=== PATIENT | female | born 1960 | race Caucasian/White ===

== ENCOUNTER 2016-06-09 10:52 | Emergency (ER) | payer OTHER ==
[~2016-06-09] VITALS: Wt 78.0 kg
[~2016-06-09 10:52] MED LIST: DICL75TA2 PO; DULO60CA59 PO; FENO160T13 PO; FLUT1BLS INHALATION; GLIM1TAB2 PO; GLIM2TAB PO; HYD25 PO; HYDR-1666; HYDR50TA3 PO; IBUP-1542; OMEP40CA6 PO; PSEU60TA21 PO; SMV40T PO; TRAZ100T15 PO; [UNRECOGNIZED DRUG - CODE]; [UNRECOGNIZED DRUG - CODE] MC; [UNRECOGNIZED DRUG - REMARK]; ventolin
--- NOTE | 2016-06-09 11:55 | ERD ---
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 no neck/back pain HPI 55-year-old female history of diabetes hypertension dyslipidemia comes in with a right-sided headache from a ground-level fall 2 hours ago. She has slipped and fallen in the rain, she, is of a right sided headache that is throbbing, severe, nonradiating. She did not lose any consciousness, she denies nausea, vomiting, blurred vision or neuro deficits. ROS All systems reviewed and are negative except as per history of present illness. Medications Home Meds Active Scripts Hydrocodone/Acetaminophen ([place] 5-325 Tablet) 1 Each Tablet, 1 TAB PO Q6H Y for PAIN, #10 TAB Prov:JOSE ESPARZA PA-C 06/09/16 Reported Medications [ventolin ] No Conflict Check 11/27/15 Fluticasone/Vilanterol (Breo Ellipta 200-25 Mcg INH) 1 Each Blst.w.dev, 1 PUFF INHALATION DAILY, #1 INHALER 11/27/15 Duloxetine Hcl* (Duloxetine Hcl*) 60 Mg Capsule.dr, 60 MG PO DAILY, #30 CAP 11/27/15 Diclofenac Sodium* (Diclofenac Sodium*) 75 Mg Tablet.dr, 75 MG PO BID, #60 TAB 11/27/15 Glimepiride* (Glimepiride*) 1 Mg Tablet, 1 MG PO WITH BREAKFAST, TAB 11/27/15 Trazodone Hcl* (Trazodone Hcl*) 100 Mg Tablet, 100 MG PO QHS Y for SLEEP, #30 TAB 11/27/15 Sucralfate (Sucralfate) 1,000 Gm Powder, 1000 GM MC BID 11/27/15 Hydrochlorothiazide* (Hydrochlorothiazide*) 50 Mg Tab, 50 MG PO DAILY, #30 TAB 11/27/15 Pseudoephedrine Hcl* (Sudogest*) 60 Mg Tablet, 60 MG PO Q6 Y for CONGESTION, TAB 11/27/15 Omeprazole* (Omeprazole*) 40 Mg Capsule.dr, 40 MG PO DAILY, #30 CAP 11/27/15 Fenofibrate, Micronized* (Fenofibrate*) 160 Mg Tablet, 160 MG PO DAILY, TAB 7/26/16 Simvastatin (Simvastatin) 40 Mg Tablet, 40 MG PO HS, TAB 03/03/14 Glimepiride* (Glimepiride*) 2 Mg Tablet, 2 MG PO WITH BREAKFAST, TAB 03/03/14 Hydrochlorothiazide* (Hydrochlorothiazide*) 25 Mg Tab, 25 MG PO DAILY, TAB 03/03/14 [Unknown Name] No Conflict Check 11/22/09 Gabapentin (Gabarone) 400 Mg Tablet 11/22/09 Ibuprofen* (Ibuprofen*) 600 Mg Tablet 11/22/09 Hydrocodone Bit/Acetaminophen (Vicodin 5/500 Tablet) 1 Tab Tablet 11/22/09 Allergies Allergies: Coded Allergies: sulfamethoxazole (Verified Allergy, Severe, 11/27/15) difficulty of breathing trimethoprim (Verified Allergy, Severe, 11/27/15) difficulty of breathing PMhx/Soc History of Surgery: Yes (FACE AND BACK SG (2012,2009).) Anesthesia Reaction: No Hx Neurological Disorder: No Hx Respiratory Disorders: Yes (asthma) Hx Cardiac Disorders: Yes (htn) Hx Psychiatric Problems: No Hx Miscellaneous Medical Probl: Yes (ASTHMA, GERD, HTN, DM, FACE AND BACK SG ( 2012,2009).) Hx Alcohol Use: Yes (occasional) Hx Substance Use: No Hx Tobacco Use: No Physical Exam Vitals Vital Signs Date Time Temp Pulse Resp B/P Pulse Ox O2 Delivery O2 Flow Rate FiO2 06/09/16 10:59 98.7 85 21 150/81 98 Physical Exam General: Well-developed, well-nourished. The patient appears in no acute distress. HEENT: Head is normocephalic, right temporal scalp hematoma. No overlying laceration no scleral icterus. Pupils are equal, round, and reactive. Oropharynx clear. Neck: Supple. Nontender. No midline tenderness, step-offs or crepitus. Lungs: Clear to auscultation. Normal air movement. Heart: Regular rate and rhythm. S1 and S2 are normal. No murmurs, gallops, or rubs. Abdomen: Soft, nontender, nondistended. Bowel sounds are normoactive. Extremities: No clubbing or cyanosis. Normal pulses. Moving extremities x 4. No weakness. Neurologic: Alert and oriented 3. No focal deficits. Cranial nerves II 12 grossly intact. Speech and gait normal. Strength upper and lower exam is 5 out of 5 bilaterally. Skin: Normal turgor. No rash or lesions. Results 24 hrs Current Medications Medications (Trade) Dose Ordered Sig/Ann Route PRN Reason Start Time Stop Time Status Last Admin Dose Admin Acetaminophen (Tylenol Tab) 650 mg ONCE ONCE PO 06/09/16 12:00 06/09/16 12:01 DC 06/09/16 12:05 PROCEDURE: CT Brain without contrast. CLINICAL INDICATION: Right sided head trauma TECHNIQUE: A CT of the brain was performed utilized axial imaging from the skull base through the vertex without IV contrast. Multiplanar reformatted images were made. Images were reviewed on a PACS workstation. The CTDIvol is 45 mGy and the DLP is 630 mGycm. COMPARISON: None FINDINGS: There is no intracranial hemorrhage, mass effect, or midline shift. No extra- axial fluid collection is seen. The ventricles and sulci are normal in size and configuration. The density of the brain is normal, and the trujillo white matter differentiation appears well-preserved. The visualized paranasal sinuses and osseous structures are grossly unremarkable. There is right frontal scalp swelling. IMPRESSION: Right frontal scalp swelling. No intracranial hemorrhage or skull fracture. .Evin Robles MD, MD Date Time Electronically viewed and signed by .Evin Robles MD, MD on 06/09/2016 12: 41 Procedures/MDM ED course: She was given Tylenol for pain. CT of the head was ordered based on her hematoma and head trauma. MDM: 55-year-old female slipped and fell, complains of right temporal headache, no evidence of a skull fracture or intracranial hemorrhage on the CT scan. Her neurologic examination is normal, she does have a scalp hematoma that is appreciated on examination. This patient may follow-up with her primary care doctor. Departure Diagnosis: Primary Impression: Head injury, acute, without loss of consciousness Condition: JOSE Xie PA-C Jun 09, 2016 11:55
[2016-06-09] MEDS ORDERED: ACETAMINOPHEN 325 MG TAB PO ONE (12:00)
--- NOTE | 2016-06-09 12:41 | RADRPT ---
PROCEDURE: CT Brain without contrast. CLINICAL INDICATION: Right sided head trauma TECHNIQUE: A CT of the brain was performed utilized axial imaging from the skull base through the vertex without IV contrast. Multiplanar reformatted images were made. Images were reviewed on a thePlatform workstation. The CTDIvol is 45 mGy and the DLP is 630 mGycm. COMPARISON: None FINDINGS: There is no intracranial hemorrhage, mass effect, or midline shift. No extra-axial fluid collection is seen. The ventricles and sulci are normal in size and configuration. The density of the brain is normal, and the trujillo white matter differentiation appears well-preserved. The visualized paranasal sinuses and osseous structures are grossly unremarkable. There is right frontal scalp swelling. IMPRESSION: Right frontal scalp swelling. No intracranial hemorrhage or skull fracture. .Evin Robles MD, MD Date Time Electronically viewed and signed by .Evin Robles MD, MD on 06/09/2016 12:41 .A/
[2016-06-09] MEDS ORDERED: HYDR-906 PO (12:48)
[2016-06-09 13:22] VITALS: BP 145/80; PULSE 66; RESP 18; TEMP 98.7
== END 2016-06-09 13:23 | disposition home or self-care (01) ==
LOC: FTE 10:52
DX: S09.90XA Unspecified injury of head, initial encounter (principal); J45.909 Unspecified asthma, uncomplicated; I10 Essential (primary) hypertension; E11.9 Type 2 diabetes mellitus without complications; R51 Headache; W01.0XXA Fall on same level from slipping, tripping and stumbling without subsequent striking against object, initial encounter; Y92.9 Unspecified place or not applicable; Z79.84 Long term (current) use of oral hypoglycemic drugs
CPT/HCPCS: 70450; Z7502; Z7610

== ENCOUNTER 2016-08-18 11:38 | Day surgery (SDC) | payer OTHER ==
[~2016-08-18] VITALS: Ht 157.5 cm; Wt 80.4 kg
[~2016-08-18 11:38] MED LIST changes: +HYDR-906 PO
[2016-08-18 13:12] VITALS: Ht 157.5 cm; Wt 80.4 kg
[2016-08-18 13:37] VITALS: BP 138/83; PULSE 73; RESP 16
[2016-08-18] MEDS ORDERED: CEFAZOLIN 1 GM/50 ML (PMX) 50 ML IVPB ONE (14:03)
[2016-08-18 15:12] VITALS: BP 124/78; PULSE 68; RESP 12
[2016-08-18] MEDS ORDERED: FENTAnyl 50 MCG/ML VIAL ONE (15:23)
[2016-08-18] MEDS ORDERED: MIDAZOLAM 1 MG/ML 2 ML INJ ONE ×2 (15:23)
--- NOTE | 2016-08-19 03:55 | GILP ---
DATE OF PROCEDURE: 08/18/2016 PREOPERATIVE DIAGNOSIS: Iron deficiency anemia. PROCEDURE DONE: Colonoscopy up to cecum. POSTOPERATIVE DIAGNOSIS: Diverticulosis of the left colon. DESCRIPTION OF PROCEDURE: After obtaining informed consent, she was sedated, monitored, and 3 mg IV Versed, 75 mcg of fentanyl given. Rectal exam done which was normal. Advanced a pediatric Olympus video colonoscope all the way to cecum. Cecum and ascending colon identified with ileocecal valve and appendiceal opening. Photography done. I slowly withdrew the scope. Because of the pain, anot her 1 mg of IV Versed and 25 mcg of fentanyl given. Decompressed the patient and then slowly withdr ew the scope examining the cecum, ascending colon, transverse colon, descending colon, sigmoid colon , and rectum. Except for diverticulosis in the left colon but no diverticulitis, no narrowing, rect um including retroflexion is normal. Upon removal of scope, the patient had no complication. PLAN: Will be to follow up p.r.n. and repeat colonoscopy in 5 to 10 years. As far as if her occult bleeding continues, consider capsule enteroscopy and followup as outpatient. Dictated By: BRIANA AVELAR Conf#: [id number] DID#: [id number] CC: Sameer Barraza MD;*End*
== END 2016-08-18 16:30 | disposition home or self-care (01) ==
LOC: GIL 11:38
PROVIDERS: ATTEND Internal Medicine
DX: D50.9 Iron deficiency anemia, unspecified (principal); K57.30 Diverticulosis of large intestine without perforation or abscess without bleeding; E11.9 Type 2 diabetes mellitus without complications; I10 Essential (primary) hypertension; E78.5 Hyperlipidemia, unspecified; K31.9 Disease of stomach and duodenum, unspecified; K44.9 Diaphragmatic hernia without obstruction or gangrene; K21.9 Gastro-esophageal reflux disease without esophagitis; R11.2 Nausea with vomiting, unspecified; E87.5 Hyperkalemia; M13.0 Polyarthritis, unspecified; K62.5 Hemorrhage of anus and rectum
CPT/HCPCS: 45378; 82962; J0690; J2250; J3010

== ENCOUNTER 2017-03-12 13:45 | Inpatient (IN) | payer OTHER ==
[~2017-03-12] VITALS: Ht 162.6 cm; Wt 78.8 kg
[~2017-03-12 13:45] MED LIST changes: -DICL75TA2 PO; -DULO60CA59 PO; -GLIM2TAB PO; -HYD25 PO; -HYDR-1666; -HYDR-906 PO; -IBUP-1542; -PSEU60TA21 PO; -SMV40T PO; -[UNRECOGNIZED DRUG - CODE]; -[UNRECOGNIZED DRUG - CODE] MC; -[UNRECOGNIZED DRUG - REMARK]
[2017-03-12] MEDS ORDERED: SOD CHLORIDE 0.9% 1,000 ML IV STA (14:19)
[2017-03-12] MEDS ORDERED: morphine 4 MG/ML VIAL IV STA (14:26)
[2017-03-12] MEDS ORDERED: ONDANSETRON 4 MG INJ IV STA (14:26)
--- NOTE | 2017-03-12 15:01 | RADRPT ---
PROCEDURE: CT Abdomen and Pelvis without contrast. CLINICAL INDICATION: Abdominal pain TECHNIQUE: CT scan of the abdomen and pelvis was performed on a multidetector high-resolution CT s canner without intravenous contrast. Coronal and sagittal reformatted images were obtained from the axial source images. Images were reviewed on a high-resolution PACS workstation. The total exam CTD I equals 17mGy and the total exam DLP equals 1005mGy-cm. One or more of the following dose reduction techniques were used: Automated exposure control, Adjustment of the mA and/or kV according to patie nt size, and/or use of iterative reconstruction technique. COMPARISON: None. FINDINGS: Evaluation of the solid organs is limited given the lack of intravenous contrast administration. The lung bases are clear. Hypoattenuation of the liver. No pancreatic ductal dilatation. Spleen and adrenals are unremarkable. No focal pericholecystic inflammatory changes. No hydronephrosis. No renal or ureteral stone. No bowel obstruction. Normal-caliber appendix. Sigmoid colonic diverticulosis with trace pericolon ic stranding. No significant retroperitoneal lymphadenopathy, ascites or evidence of pneumoperitoneum. L5-S1 anterior interbody and interspinous fusion. IMPRESSION: Sigmoid colonic diverticulosis with trace pericolonic stranding can be seen with mild sigmoid coloni c diverticulitis. Hepatic steatosis. RPTAT: AA .Gunner Garcia MD, Date Time Electronically viewed and signed by .Gunner Garcia MD, on 03/12/2017 15:00 .T/
[2017-03-12 15:04] LABS: BASOPHILS % 0.4 % (0.0-2.0); HEMATOCRIT 39.5 % (37.0-47.0); HEMOGLOBIN 13.2 g/dl (12.0-16.0); LYMPHOCYTES # 1.7 10^3/ul (0.8-2.9); LYMPHOCYTES % 25.3 % (15.0-51.0); MEAN CORPUSCULAR HEMOGLOBIN 28.3 pg (29.0-33.0); MEAN CORPUSCULAR HGB CONC 33.4 g/dl (32.0-37.0); MEAN CORPUSCULAR VOLUME 84.6 fl (82.0-101.0); MEAN PLATELET VOLUME 8.7 fl (7.4-10.4); MONOCYTE # 0.4 10^3/ul (0.3-0.9); MONOCYTES % 5.6 % (0.0-11.0); NEUTROPHIL # 4.6 10^3/ul (1.6-7.5); NEUTROPHILS % 68.4 % (39.0-77.0); PLATELET COUNT 341 10^3/UL (140-415); RED BLOOD COUNT 4.67 10^6/ul (4.20-5.40); RED CELL DISTRIBUTION WIDTH 13.1 % (11.5-14.5); WHITE BLOOD COUNT 6.8 10^3/ul (4.8-10.8)
[2017-03-12 15:21] LABS: ALBUMIN 4.3 g/dl (3.3-4.9); ALBUMIN/GLOBULIN RATIO 1.07; BILIRUBIN,INDIRECT 0.2 mg/dl (0-1.1); BILIRUBIN,TOTAL 0.2 mg/dl (0.2-1.3); CALCIUM 9.5 mg/dl (8.4-10.2); CREATININE 0.73 mg/dl (0.44-1.00); INR 0.93; POTASSIUM 3.4 mmol/L (3.5-5.1); PROTIME 12.5 Sec (12.2-14.2); TOTAL PROTEIN 8.3 g/dl (6.1-8.1)
[2017-03-12] MEDS ORDERED: metroNIDAZOLE 500 MG/NS (PMX) 100 ML IVPB ONE (15:30)
[2017-03-12] MEDS ORDERED: LEVOFLOXACIN 750MG/D5W (PMX) 150 ML IVPB ONE (15:30)
[2017-03-12] MEDS ORDERED: ALBUTEROL/IPRATROPIUM (NEB) 3 ML AMP HHN PRN (16:30)
[2017-03-12] MEDS ORDERED: ONDANSETRON 4 MG INJ IV PRN (16:30)
[2017-03-12] MEDS ORDERED: NACL 0.9% 3 ML SYG IV SCH (16:30)
--- NOTE | 2017-03-12 16:55 | ERD ---
ER Documentation Chief Complaint Chief Complaint rectal bleed x5 days, hx diverticulitis HPI 56-year-old woman complains of 5 days of rectal bleeding, blood intermixed with stool. She denies melena but does have a recent history of acute diverticulitis which was managed as an inpatient for 4 days last month and treated with IV antibiotics. She admits to taking about 1 week of oral antibiotics 1 week post discharge. She states initially her symptoms improved although returned about 4 days ago. She describes lower abdominal cramping, no fevers or chills, no vomiting, no chest pain or shortness of breath. ROS All systems reviewed and are negative except as per history of present illness. Medications Home Meds Reported Medications [ventolin ] No Conflict Check 11/27/15 Fluticasone/Vilanterol (Breo Ellipta 200-25 Mcg INH) 1 Each Blst.w.dev, 1 PUFF INHALATION DAILY, #1 INHALER 11/27/15 Glimepiride* (Glimepiride*) 1 Mg Tablet, 1 MG PO WITH BREAKFAST, TAB 11/27/15 Trazodone Hcl* (Trazodone Hcl*) 100 Mg Tablet, 100 MG PO QHS Y for SLEEP, #30 TAB 11/27/15 Hydrochlorothiazide* (Hydrochlorothiazide*) 50 Mg Tab, 50 MG PO DAILY, #30 TAB 11/27/15 Omeprazole* (Omeprazole*) 40 Mg Capsule.dr, 40 MG PO DAILY, #30 CAP 11/27/15 Fenofibrate, Micronized* (Fenofibrate*) 160 Mg Tablet, 160 MG PO DAILY, TAB 11/27/15 Allergies Allergies: Coded Allergies: sulfamethoxazole (Verified Allergy, Severe, 11/27/15) difficulty of breathing trimethoprim (Verified Allergy, Severe, 11/27/15) difficulty of breathing PMhx/Soc Recent diverticulitis, diabetes mellitus, gastritis History of Surgery: Yes (FUSION LOW BACK, R KNEE OPA, R JAW CYST) Anesthesia Reaction: No Hx Neurological Disorder: No Hx Respiratory Disorders: Yes (SEASONAL ALLERGIES) Hx Cardiac Disorders: Yes (HIGH CHOL HTN) Hx Psychiatric Problems: No Hx Miscellaneous Medical Probl: No Hx Alcohol Use: No Hx Substance Use: No Hx Tobacco Use: Yes (QUIT 40 YRS AGO) Smoking Status: Former smoker FmHx Family History: diabetes Physical Exam Vitals Vital Signs Date Time Temp Pulse Resp B/P Pulse Ox O2 Delivery O2 Flow Rate FiO2 03/12/17 13:49 97.6 88 20 123/85 98 Physical Exam GENERAL: Well-developed, well-nourished, well-hydrated, in no apparent distress , looks nontoxic in appearance HEENT: Moist mucous membranes, pink conjunctiva, no cervical spine tenderness or step-off deformities, no goiter, no jaundice or icterus, extraocular movements intact without pain. No submandibular induration, and no pharyngeal erythema NEURO: Alert and oriented 3, cranial nerves II through XII intact bilaterally, pupils equal round reactive to light, no focal deficits or facial asymmetry, sensation intact distally Strength 5/5 in upper and lower extremities bilaterally CARDIAC: Regular rate and rhythm, no murmurs rubs or gallops LUNGS: Clear bilaterally no wheezing crackles or stridor ABDOMEN: Soft nontender, no guarding, no rigidity, no rebound, no psoas sign no obturator sign. Normoactive bowel sounds SKIN: Warm and dry to touch, no abrasions, contusions, or hematomas, no lacerations, no ecchymosis, no target lesions, and without ulcers EXTREMITIES: No clubbing cyanosis or edema, calves are bilaterally symmetrical, no Homans sign, no popliteal cord sign. Distal pulses equal and bilateral PSYCH: Normal affect without agitation or irritability Result Diagram: 03/12/17 1450 03/12/17 1450 Results 24 hrs Laboratory Tests Test 03/12/17 14:50 White Blood Count 6.810^3/ul Red Blood Count 4.6710^6/ul Hemoglobin 13.2g/dl Hematocrit 39.5% Mean Corpuscular Volume 84.6fl Mean Corpuscular Hemoglobin 28.3pg Mean Corpuscular Hemoglobin Concent 33.4g/dl Red Cell Distribution Width 13.1% Platelet Count 66371^3/UL Mean Platelet Volume 8.7fl Neutrophils % 68.4% Lymphocytes % 25.3% Monocytes % 5.6% Eosinophils % 0.0% Basophils % 0.4% Nucleated Red Blood Cells % 0.0/100WBC Neutrophils # 4.610^3/ul Lymphocytes # 1.710^3/ul Monocytes # 0.410^3/ul Eosinophils # 0.010^3/ul Basophils # 0.010^3/ul Nucleated Red Blood Cells # 0.010^3/ul Prothrombin Time 12.5Sec Prothrombin Time Ratio 1.0 INR International Normalized Ratio 0.93 Sodium Level 144mmol/L Potassium Level 3.4mmol/L Chloride Level 103mmol/L Carbon Dioxide Level 30mmol/L Anion Gap 14 Blood Urea Nitrogen 13mg/dl Creatinine 0.73mg/dl Glucose Level 94mg/dl Calcium Level 9.5mg/dl Total Bilirubin 0.2mg/dl Direct Bilirubin 0.00mg/dl Indirect Bilirubin 0.2mg/dl Aspartate Amino Transf (AST/SGOT) 26IU/L Alanine Aminotransferase (ALT/SGPT) 36IU/L Alkaline Phosphatase 120IU/L Total Protein 8.3g/dl Albumin 4.3g/dl Globulin 4.00g/dl Albumin/Globulin Ratio 1.07 Lipase 49U/L Current Medications Medications (Trade) Dose Ordered Sig/Ann Route PRN Reason Start Time Stop Time Status Last Admin Dose Admin Sodium Chloride (NS) 1,000 ml @ 1,000 mls/hr Q1H STAT IV 03/12/17 14:19 03/12/17 15:18 DC 03/12/17 15:49 Morphine Sulfate (morphine) 4 mg ONCE STAT IV 03/12/17 14:26 03/12/17 14:27 DC 03/12/17 15:49 Ondansetron HCl 4 mg 4 mg ONCE STAT IV 03/12/17 14:26 03/12/17 14:27 DC 03/12/17 15:49 Metronidazole 100 ml @ 100 mls/hr ONCE ONCE IVPB 03/12/17 15:30 03/12/17 16:29 DC 03/12/17 15:49 Levofloxacin/ Dextrose 150 ml @ 100 mls/hr ONCE ONCE IVPB 03/12/17 15:30 03/12/17 16:59 03/12/17 16:27 Potassium Chloride/Dextrose/ Sod Cl (D5-1/2ns + KCl 20 Meq) 1,000 ml @ 100 mls/hr Q10H IV 03/12/17 16:19 UNV IV Flush (NS 3 ml) 3 ml PER PROTOCOL IV 03/12/17 16:30 UNV Ondansetron HCl (Zofran Inj) 4 mg Q6H PRN IV NAUSEA AND/OR VOMITING 03/12/17 16:30 UNV Morphine Sulfate 2 mg 2 mg Q4H PRN IV SEVERE PAIN LEVEL 7-10 03/12/17 16:30 UNV Piperacillin Sod/ Tazobactam Sod (Zosyn 3.375gm/ 50 ml (Pmx)) 50 ml @ 100 mls/hr Q6 IVPB 03/12/17 18:00 UNV Miscellaneous Information 1 puff DAILY INHALATION 03/13/17 09:00 UNV Albuterol/ Ipratropium (Duoneb) 3 ml Q4H RESP THERAPY PRN HHN SHORTNESS OF BREATH 03/12/17 16:30 UNV Miscellaneous Information (* Miscellaneous Pharmacy Order) Discontinue current oral sulfonylur... ONCE ONCE XX 03/12/17 16:30 03/12/17 16:31 UNV Diagnostic Test (Pha) (Accu-Chek) 1 ea 02 XX 03/13/17 02:00 UNV Miscellaneous Information (* Miscellaneous Pharmacy Order) HYPOGLYCEMIA PROTOCOL w... ONCE ONCE XX 03/12/17 16:30 03/12/17 16:31 UNV Insulin Aspart (Novolog Insulin Pen) NOVOLOG *MILD* ALGORI... Q4 SC 03/12/17 17:00 UNV Miscellaneous Information (* Miscellaneous Pharmacy Order) Discontinue all previ... 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 Patient was afebrile. Stool cultures and C. difficile toxin assay was ordered I administered 1 L normal saline intravenously, morphine 4 mg IV, Zofran 4 mg IV , Levaquin 750 mg IV 1, metronidazole 500 mg IV 1. CBC and electrolytes are normal, liver function tests are normal, coagulation profile was unremarkable. CT scan of the abdomen and pelvis was ordered: Sigmoid colonic diverticulosis with trace pericolonic stranding can be seen with mild sigmoid colonic diverticulitis. Hepatic steatosis. Patient will be admitted to [facility] for continued IV antibiotics and GI consultation. Departure Diagnosis: Primary Impression: Rectal hemorrhage Additional Impression: Sigmoid diverticulitis Condition: BUSHRA Nuñez MD Mar 12, 2017 16:55
[2017-03-12] MEDS ORDERED: GLUCOSE GEL 15 GRAM TUBE BUCCAL PRN (17:00)
[2017-03-12] MEDS ORDERED: GLUCAGON 1 MG INJ IM PRN (17:00)
[2017-03-12] MEDS ORDERED: DEXTROSE 50% 50 ML SYRINGE IV PRN ×2 (17:00)
[2017-03-12] MEDS ORDERED: GLUCOSE GEL 15 GRAM TUBE PO PRN ×2 (17:00)
--- NOTE | 2017-03-12 17:11 | HP ---
Date/Time of Note Date/Time of Note DATE: 03/12/17 TIME: 17:04 Assessment/Plan VTE Prophylaxis VTE Prophylaxis Intervention: SCD's Assessment/Plan Chief Complaint/Hosp Course 1. Lower GI bleed H&H stable Positive secondary to hemorrhoids GI consultation 2. Possible diverticulitis Patient is reported history of diverticulitis N.p.o. Zosyn IV 3. Asthma Continue home meds DuoNeb as needed 4. Diabetes Sliding scale 5. Hypertension Hold hydrochlorthiazide 6. Dyslipidemia Hold fenofibrate Prophylaxis: SCDs Problems: HPI/ROS Admit Date/Time Admit Date/Time March 12, 2017 Hx of Present Illness Patient is 56-year-old female with a history of asthma, [id number] diabetes, hypertension as well as left colitis. Patient presents with 4 days of abdominal and lower back pain associated with bright red blood per rectum. Patient states that the bleeding begins after her bowel movements. Patient has no prior history of GI bleed but she once again reports a history of diverticulitis in the past. CT abdomen in the ED shows possible diverticulitis , patient has no other acute complaints this time. ROS Constitutional: improved, no complaints Eyes: no complaints ENT: no complaints Respiratory: no complaints Cardiovascular: no complaints Gastrointestinal: blood, pain Genitourinary: no complaints Musculoskeletal: no complaints Skin: no complaints Neurologic: no complaints Endocrine: no complaints Lymphatic: no complaints Psychological: nl mood/affect, no complaints Immunologic: no complaints PMH/Family/Social Past Medical History None insulin dependent diabetes, hypertension, asthma, dyslipidemia, diverticulitis Past Surgical History L5-S1 laminectomy as well as right knee meniscal tear repair Family History Significant Family History: no pertinent family hx Social History Alcohol Use: none Smoking Status: Former smoker Drug Use: none Exam/Review of Systems Vital Signs Vitals Vital Signs Date Time Temp Pulse Resp B/P Pulse Ox O2 Delivery O2 Flow Rate FiO2 03/12/17 13:49 97.6 88 20 123/85 98 Exam Constitutional: alert, oriented Head: normocephalic Respiratory: clear to auscultation Cardiovascular: regular rate and rhythm Gastrointestinal: soft, No distended Musculoskeletal: nl extremities to inspection Labs Result Diagram: 03/12/17 1450 03/12/17 1450 Medications Medications Current Medications Potassium Chloride/Dextrose/ Sod Cl (D5-1/2ns + KCl 20 Meq) 1,000 ml @ 100 mls/ hr Q10H IV ; Start 03/12/17 at 18:00 Ondansetron HCl (Zofran Inj) 4 mg Q6H PRN IV NAUSEA AND/OR VOMITING; Start 03/12/17 at 16:30 Morphine Sulfate 2 mg 2 mg Q4H PRN IV SEVERE PAIN LEVEL 7-10; Start 03/12/17 at 16:30 Piperacillin Sod/ Tazobactam Sod (Zosyn 3.375gm/ 50 ml (Pmx)) 50 ml @ 100 mls/ hr Q6 IVPB ; Start 03/13/17 at 00:00 Salmeterol Xinafoate/ Fluticasone (Advair 100/50 Diskus) 1 inh BID INH ; Start 03/12/17 at 21:00 Diagnostic Test (Pha) (Accu-Chek) 1 ea 02 XX ; Start 03/13/17 at 02:00 Insulin Aspart (Novolog Insulin Pen) NOVOLOG *MILD* ALGORI... Q4 SC ; Start 03/12/17 at 21:00 Miscellaneous Information 1 ea NOTE XX ; Start 03/12/17 at 17:00 Glucose (Glutose) 15 gm Q15M PRN PO DECREASED GLUCOSE; Start 03/12/17 at 17:00 Glucose (Glutose) 22.5 gm Q15M PRN PO DECREASED GLUCOSE; Start 03/12/17 at 17: 00 Dextrose (D50w Syringe) 25 ml Q15M PRN IV DECREASED GLUCOSE; Start 03/12/17 at 17:00 Dextrose (D50w Syringe) 50 ml Q15M PRN IV DECREASED GLUCOSE; Start 03/12/17 at 17:00 Glucagon (Glucagen) 1 mg Q15M PRN IM DECREASED GLUCOSE; Start 03/12/17 at 17:00 Glucose (Glutose) 15 gm Q15M PRN BUCCAL DECREASED GLUCOSE; Start 03/12/17 at 17 :00 SUZI AGUILAR Mar 12, 2017 17:11
--- NOTE | 2017-03-12 18:53 | CONS ---
Date/Time of Note Date/Time of Note DATE: 03/12/17 TIME: 18:32 Assessment/Plan Assessment/Plan Chief Complaint/Hosp Course Summary Assessment and Plan: Assessment: Lower GI bleed-hemorrhoids versus diverticular Lower abd pain- r/t diverticulitis Possible diverticulitis-on antibiotics Asthma Diabetes Hypertension Dyslipidemia Plan: DC Zosyn Restart Levaquin/Flagyl Keep N.p.o. at this time Patient considered high risk for perforation if proceed with colonoscopy Continue to monitor She seen in collaboration with Dr. Garnica Chief Complaint/Reason for Visit: Hematochezia Abdominal pain History of Present Illness: This is a pleasant 56-year-old female with recent history of diverticulitis in February of this year treated with antibiotics, hypertension, diabetes, high cholesterol, gastritis, gastric ulcer, presented to the ER with 5 day history of progressive lower abdominal pain and hematochezia. Patient states pain initially started mid abdomen that has now localized left lower quadrant. Difficult for her to describe the pain, aggravated by exertion, relieved by medication. CT abdomen pelvis without contrast shows sigmoid colonic diverticulosis with trace pericolonic stranding can be seen with mild sigmoid colonic diverticulitis. Will hold off on colonoscopy at this time as patient is considered high risk for perforation. We will stop Zosyn and start Levaquin and Flagyl will keep n.p.o., and continue to monitor Past Medical History: Diabetes High cholesterol Diverticulitis Depression Anxiety Asthma Colitis Gastric ulcer Allergies: Sulfamethoxazole Trimethoprim Family History: [] Social History: [] PHYSICAL EXAMINATION: GENERAL: Well developed, well nourished, alert & oriented x 3, in no acute distress SKIN: No lesions, no stigmata chronic liver disease, no evidence of bleeding diathesis LYMPHATIC: No palpable lymphadenopathy. HEAD: Normocephalic, atraumatic, no tenderness. EYES: Pupils equal reactive to light and accommodation, full extraocular movements, sclera clear, e. EARS/NOSE AND THROAT: Ears normal, nose normal,oral membranes well hydrated without lesions. NECK: Supple, no masses, CHEST: Inspection within normal limits. CARDIOVASCULAR: Heart: Regular rate and rhythm, no murmurs, gallops or rubs. RESPIRATORY: Lungs clear to auscultation GASTROINTESTINAL AND LIVER: Abdomen: Soft, tenderness, non-distended, no hernias, no masses, no organomegaly, no ascites no rebound tenderness, normoactive bowel sounds. Rectal: Deferred. EXTREMITIES: No cyanosis, clubbing or edema. Problems: Consultation Date/Type/Reason Admit Date/Time March 12, 2017 Date of Consultation: Mar 12, 2017 Type of Consultation: GI Reason for Consultation Hematochezia Lower abdominal pain Constitutional: chills Eyes: no complaints ENT: no complaints Respiratory: no complaints Cardiovascular: no complaints Gastrointestinal: blood, pain Genitourinary: no complaints Musculoskeletal: no complaints Skin: no complaints Neurologic: no complaints Lymphatic: no complaints Psychological: nl mood/affect, no complaints Immunologic: no complaints Past Medical History Medical History: diabetes, diverticulitis, high cholesterol, hypertension, other (Depression, anxiety) Past Surgical History Past Surgical Hx: endoscopy Social History Alcohol Use: none Smoking Status: Former smoker Drug Use: none Exam/Review of Systems Vital Signs Vitals Vital Signs Date Time Temp Pulse Resp B/P Pulse Ox O2 Delivery O2 Flow Rate FiO2 03/12/17 13:49 97.6 88 20 123/85 98 Results Result Diagram: 03/12/17 1450 03/12/17 1450 Results 24 hrs Laboratory Tests Test 03/12/17 14:50 White Blood Count 6.8 Red Blood Count 4.67 Hemoglobin 13.2 Hematocrit 39.5 Mean Corpuscular Volume 84.6 Mean Corpuscular Hemoglobin 28.3 L Mean Corpuscular Hemoglobin Concent 33.4 Red Cell Distribution Width 13.1 Platelet Count 341 Mean Platelet Volume 8.7 Neutrophils % 68.4 Lymphocytes % 25.3 Monocytes % 5.6 Eosinophils % 0.0 Basophils % 0.4 Nucleated Red Blood Cells % 0.0 Neutrophils # 4.6 Lymphocytes # 1.7 Monocytes # 0.4 Eosinophils # 0.0 Basophils # 0.0 Nucleated Red Blood Cells # 0.0 Prothrombin Time 12.5 Prothrombin Time Ratio 1.0 INR International Normalized Ratio 0.93 Sodium Level 144 Potassium Level 3.4 L Chloride Level 103 Carbon Dioxide Level 30 Anion Gap 14 Blood Urea Nitrogen 13 Creatinine 0.73 Glucose Level 94 Calcium Level 9.5 Total Bilirubin 0.2 Direct Bilirubin 0.00 Indirect Bilirubin 0.2 Aspartate Amino Transf (AST/SGOT) 26 Alanine Aminotransferase (ALT/SGPT) 36 Alkaline Phosphatase 120 Total Protein 8.3 H Albumin 4.3 Globulin 4.00 H Albumin/Globulin Ratio 1.07 Lipase 49 Medications Medications Current Medications Potassium Chloride/Dextrose/ Sod Cl (D5-1/2ns + KCl 20 Meq) 1,000 ml @ 100 mls/ hr Q10H IV ; Start 03/12/17 at 18:00 Ondansetron HCl (Zofran Inj) 4 mg Q6H PRN IV NAUSEA AND/OR VOMITING; Start 03/12/17 at 16:30 Morphine Sulfate 2 mg 2 mg Q4H PRN IV SEVERE PAIN LEVEL 7-10; Start 03/12/17 at 16:30 Piperacillin Sod/ Tazobactam Sod (Zosyn 3.375gm/ 50 ml (Pmx)) 50 ml @ 100 mls/ hr Q6 IVPB ; Start 03/13/17 at 00:00 Salmeterol Xinafoate/ Fluticasone (Advair 100/50 Diskus) 1 inh BID INH ; Start 03/12/17 at 21:00 Diagnostic Test (Pha) (Accu-Chek) 1 ea 02 XX ; Start 03/13/17 at 02:00 Insulin Aspart (Novolog Insulin Pen) NOVOLOG *MILD* ALGORI... Q4 SC ; Start 03/12/17 at 21:00 Miscellaneous Information 1 ea NOTE XX ; Start 03/12/17 at 17:00 Glucose (Glutose) 15 gm Q15M PRN PO DECREASED GLUCOSE; Start 03/12/17 at 17:00 Glucose (Glutose) 22.5 gm Q15M PRN PO DECREASED GLUCOSE; Start 03/12/17 at 17: 00 Dextrose (D50w Syringe) 25 ml Q15M PRN IV DECREASED GLUCOSE; Start 03/12/17 at 17:00 Dextrose (D50w Syringe) 50 ml Q15M PRN IV DECREASED GLUCOSE; Start 03/12/17 at 17:00 Glucagon (Glucagen) 1 mg Q15M PRN IM DECREASED GLUCOSE; Start 03/12/17 at 17:00 Glucose (Glutose) 15 gm Q15M PRN BUCCAL DECREASED GLUCOSE; Start 03/12/17 at 17 :00 Copies To: CC: NELLIE GARNICA MD, VICTORIA Mar 12, 2017 18:43
[2017-03-12] MEDS ORDERED: EZET10TA3 PO (20:35)
[2017-03-12] MEDS ORDERED: ALBU18HF INHALATION (20:35)
[2017-03-12] MEDS ORDERED: ASPI-535 PO (20:35)
[2017-03-12 20:45] VITALS: BP 142/93; PULSE 86; RESP 18; Ht 162.6 cm; Wt 78.8 kg
[2017-03-12] MEDS: morphine 2 MG INJ IV PRN (21:44)
[2017-03-12] MEDS: D5W-0.45 NACL + KCL 20 MEQ 1,000 ML IV SCH (21:51)
[2017-03-12] MEDS: INSULIN ASPART [NOVOLOG] 3 ML PEN SC SCH (22:50)
[2017-03-12] MEDS: SALMETEROL/FLUTICASONE 100/50 INHA INH SCH (22:50)
[2017-03-12] MEDS: metroNIDAZOLE 500 MG/NS (PMX) 100 ML IVPB SCH (22:53)
[2017-03-13] MEDS ORDERED: PIPER-TAZO 3.375 GM IV (PMX) 50 ML IVPB SCH
[2017-03-13] MEDS: INSULIN ASPART [NOVOLOG] 3 ML PEN SC SCH ×6 (01:00→21:00)
[2017-03-13] MEDS: ACCU-CHEK XX SCH (02:00)
[2017-03-13 02:06] VITALS: BP 112/69; RESP 20
[2017-03-13] MEDS: D5W-0.45 NACL + KCL 20 MEQ 1,000 ML IV SCH ×3 (04:00→23:58)
[2017-03-13 05:52] LABS: BASOPHILS % 0.4 % (0.0-2.0); HEMATOCRIT 35.7 % (37.0-47.0); HEMOGLOBIN 11.8 g/dl (12.0-16.0); LYMPHOCYTES # 1.3 10^3/ul (0.8-2.9); LYMPHOCYTES % 26.3 % (15.0-51.0); MEAN CORPUSCULAR HEMOGLOBIN 28.2 pg (29.0-33.0); MEAN CORPUSCULAR HGB CONC 33.1 g/dl (32.0-37.0); MEAN CORPUSCULAR VOLUME 85.2 fl (82.0-101.0); MEAN PLATELET VOLUME 8.9 fl (7.4-10.4); MONOCYTE # 0.4 10^3/ul (0.3-0.9); MONOCYTES % 7.4 % (0.0-11.0); NEUTROPHIL # 3.1 10^3/ul (1.6-7.5); NEUTROPHILS % 65.7 % (39.0-77.0); PLATELET COUNT 298 10^3/UL (140-415); RED BLOOD COUNT 4.19 10^6/ul (4.20-5.40); WHITE BLOOD COUNT 4.8 10^3/ul (4.8-10.8)
[2017-03-13] MEDS: metroNIDAZOLE 500 MG/NS (PMX) 100 ML IVPB SCH ×3 (06:10→21:31)
[2017-03-13 06:40] LABS: ALBUMIN 3.4 g/dl (3.3-4.9); ALBUMIN/GLOBULIN RATIO 1.09; BILIRUBIN,INDIRECT 0.1 mg/dl (0-1.1); BILIRUBIN,TOTAL 0.1 mg/dl (0.2-1.3); CALCIUM 8.9 mg/dl (8.4-10.2); CHOL/HDL RATIO 5.1 RATIO; CREATININE 0.7 mg/dl (0.44-1.00); MAGNESIUM 1.9 mg/dl (1.7-2.5); PHOSPHORUS 4.6 mg/dl (2.5-4.9); POTASSIUM 3.9 mmol/L (3.5-5.1); TOTAL PROTEIN 6.5 g/dl (6.1-8.1)
[2017-03-13 06:49] LABS: T3 UPTAKE 29.3 % (23.5-40.5)
[2017-03-13 08:00] VITALS: BP 116/75; RESP 18
[2017-03-13] MEDS: SALMETEROL/FLUTICASONE 100/50 INHA INH SCH ×2 (09:00→21:31)
[2017-03-13] MEDS: LEVOFLOXACIN 500MG/D5W (PMX) 100 ML IVPB SCH (09:24)
[2017-03-13] MEDS: morphine 2 MG INJ IV PRN ×2 (09:34→20:17)
--- NOTE | 2017-03-13 10:53 | CONS ---
Date/Time of Note Date/Time of Note DATE: 03/13/17 TIME: 10:51 Assessment/Plan Assessment/Plan Chief Complaint/Hosp Course Assessment: Lower GI bleed-hemorrhoids versus diverticular Lower abd pain- r/t diverticulitis Possible diverticulitis-on antibiotics Asthma Diabetes Hypertension Dyslipidemia Plan: continue Levaquin/Flagyl advance diet to clears (I wrote this order) Patient considered high risk for perforation if proceed with colonoscopy, so will hold off colonoscopy for now If tolerate clears and no hematochezia, can switch abx to oral tomorow in anticipation of discharge Problems: Consultation Date/Type/Reason Admit Date/Time Mar 12, 2017 at 15:28 Initial Consult Date 03/12/17 Type of Consultation: GI 24 HR Interval Summary Free Text/Dictation LLQ pain improved, constipated, reports no further hematochezia but no BM either Exam/Review of Systems Vital Signs Vitals Vital Signs Date Time Temp Pulse Resp B/P Pulse Ox O2 Delivery O2 Flow Rate FiO2 03/13/17 08:00 98.1 77 18 116/75 94 03/12/17 20:45 Room Air Intake and Output 03/12/17 03/12/17 03/13/17 15:00 23:00 07:00 Intake Total 100 ml Balance 100 ml Exam Constitutional: alert, oriented, well developed Psych: nl mood/affect, no complaints Head: atraumatic, normocephalic Eyes: EOMI, nl conjunctiva, nl lids ENMT: nl external ears & nose, nl lips & teeth, nl nasal mucosa & septum Neck: non-tender, supple Respiratory: clear to auscultation, normal air movement Cardiovascular: nl pulses, regular rate and rhythm Gastrointestinal: bowel sounds, non-tender, soft Neurological: nl speech, nl strength Results Result Diagram: 03/13/17 0528 03/13/17 0526 Results 24 hrs Laboratory Tests Test 03/12/17 14:50 03/12/17 22:50 03/13/17 01:10 03/13/17 05:26 White Blood Count 6.8 Red Blood Count 4.67 Hemoglobin 13.2 Hematocrit 39.5 Mean Corpuscular Volume 84.6 Mean Corpuscular Hemoglobin 28.3 L Mean Corpuscular Hemoglobin Concent 33.4 Red Cell Distribution Width 13.1 Platelet Count 341 Mean Platelet Volume 8.7 Neutrophils % 68.4 Lymphocytes % 25.3 Monocytes % 5.6 Eosinophils % 0.0 Basophils % 0.4 Nucleated Red Blood Cells % 0.0 Neutrophils # 4.6 Lymphocytes # 1.7 Monocytes # 0.4 Eosinophils # 0.0 Basophils # 0.0 Nucleated Red Blood Cells # 0.0 Prothrombin Time 12.5 Prothrombin Time Ratio 1.0 INR International Normalized Ratio 0.93 Sodium Level 144 144 Potassium Level 3.4 L 3.9 Chloride Level 103 106 Carbon Dioxide Level 30 32 H Anion Gap 14 10 Blood Urea Nitrogen 13 8 Creatinine 0.73 0.70 Glucose Level 94 123 Calcium Level 9.5 8.9 Total Bilirubin 0.2 0.1 L Direct Bilirubin 0.00 0.00 Indirect Bilirubin 0.2 0.1 Aspartate Amino Transf (AST/SGOT) 26 23 Alanine Aminotransferase (ALT/SGPT) 36 36 Alkaline Phosphatase 120 90 Total Protein 8.3 H 6.5 # Albumin 4.3 3.4 Globulin 4.00 H 3.10 Albumin/Globulin Ratio 1.07 1.09 Lipase 49 Bedside Glucose 116 111 Phosphorus Level 4.6 Magnesium Level 1.9 Triglycerides Level 205 H Cholesterol Level 187 LDL Cholesterol, Calculated 110 HDL Cholesterol 36 L Cholesterol/HDL Ratio 5.1 Free Thyroxine Index 2.31 Thyroxine (T4) 7.9 Triiodothyronine (T3) Uptake 29.3 Test 03/13/17 05:28 03/13/17 05:52 03/13/17 09:22 White Blood Count 4.8 # Red Blood Count 4.19 L Hemoglobin 11.8 L Hematocrit 35.7 L Mean Corpuscular Volume 85.2 Mean Corpuscular Hemoglobin 28.2 L Mean Corpuscular Hemoglobin Concent 33.1 Red Cell Distribution Width 13.0 Platelet Count 298 Mean Platelet Volume 8.9 Neutrophils % 65.7 Lymphocytes % 26.3 Monocytes % 7.4 Eosinophils % 0.0 Basophils % 0.4 Nucleated Red Blood Cells % 0.0 Neutrophils # 3.1 Lymphocytes # 1.3 Monocytes # 0.4 Eosinophils # 0.0 Basophils # 0.0 Nucleated Red Blood Cells # 0.0 Hemoglobin A1c 6.3 H Bedside Glucose 128 127 Medications Medications Current Medications Potassium Chloride/Dextrose/ Sod Cl (D5-1/2ns + KCl 20 Meq) 1,000 ml @ 100 mls/ hr Q10H IV Last administered on 03/13/17 09:34; Admin Dose 100 MLS/HR; Start 03/12/17 at 18:00 Ondansetron HCl (Zofran Inj) 4 mg Q6H PRN IV NAUSEA AND/OR VOMITING; Start 03/12/17 at 16:30 Morphine Sulfate (morphine) 2 mg Q4H PRN IV SEVERE PAIN LEVEL 7-10 Last administered on 03/13/17 09:34; Admin Dose 2 MG; Start 03/12/17 at 16:30 Salmeterol Xinafoate/ Fluticasone (Advair 100/50 Diskus) 1 inh BID INH ; Start 03/12/17 at 21:00 Diagnostic Test (Pha) (Accu-Chek) 1 ea 02 XX ; Start 03/13/17 at 02:00 Insulin Aspart (Novolog Insulin Pen) NOVOLOG *MILD* ALGORI... Q4 SC ; Start 03/12/17 at 21:00 Miscellaneous Information 1 ea NOTE XX ; Start 03/12/17 at 17:00 Glucose (Glutose) 15 gm Q15M PRN PO DECREASED GLUCOSE; Start 03/12/17 at 17:00 Glucose (Glutose) 22.5 gm Q15M PRN PO DECREASED GLUCOSE; Start 03/12/17 at 17: 00 Dextrose (D50w Syringe) 25 ml Q15M PRN IV DECREASED GLUCOSE; Start 03/12/17 at 17:00 Dextrose (D50w Syringe) 50 ml Q15M PRN IV DECREASED GLUCOSE; Start 03/12/17 at 17:00 Glucagon (Glucagen) 1 mg Q15M PRN IM DECREASED GLUCOSE; Start 03/12/17 at 17:00 Glucose 15 gm 15 gm Q15M PRN BUCCAL DECREASED GLUCOSE; Start 03/12/17 at 17:00 Levofloxacin/ Dextrose 100 ml @ 100 mls/hr Q24H IVPB Last administered on 09:24; Admin Dose 100 MLS/HR; Start 03/13/17 at 09:00 Metronidazole (Flagyl 500 Mg (Pmx)) 100 ml @ 100 mls/hr Q8 IVPB Last administered on 03/13/17 06:10; Admin Dose 100 MLS/HR; Start 03/12/17 at 22:00 BUSHRA BUSTOS MD Mar 13, 2017 10:53
--- NOTE | 2017-03-13 12:29 | PN ---
Date/Time of Note Date/Time of Note DATE: 03/13/17 TIME: 12:27 Assessment/Plan VTE Prophylaxis VTE Prophylaxis Intervention: ambulation Lines/Catheters IV [facility] Saline Lock Assessment/Plan Chief Complaint/Hosp Course 1. Lower GI bleed, none today 2. Possible diverticulitis 3. Mild Asthma 4. Diabetes mellitus type II, controlled 5. Hypertension, controlled 6. Dyslipidemia Problems: Assessment/Plan 1. Start clear liquids Subjective 24 Hr Interval Summary Gastrointestinal: pain, passing stool Genitourinary: flank pain Exam/Review of Systems Vital Signs Vitals Vital Signs Date Time Temp Pulse Resp B/P Pulse Ox O2 Delivery O2 Flow Rate FiO2 03/13/17 08:00 98.1 77 18 116/75 94 03/12/17 20:45 Room Air Intake and Output 03/12/17 03/12/17 03/13/17 14:59 22:59 06:59 Intake Total 100 ml Balance 100 ml Exam Constitutional: alert, oriented Eyes: nl conjunctiva Neck: supple Respiratory: clear to auscultation Cardiovascular: regular rate and rhythm Gastrointestinal: tender Results Result Diagram: 03/13/17 0528 03/13/17 0526 Results 24 hrs Laboratory Tests Test 03/12/17 14:50 03/12/17 22:50 03/13/17 01:10 03/13/17 05:26 White Blood Count 6.8 Red Blood Count 4.67 Hemoglobin 13.2 Hematocrit 39.5 Mean Corpuscular Volume 84.6 Mean Corpuscular Hemoglobin 28.3 L Mean Corpuscular Hemoglobin Concent 33.4 Red Cell Distribution Width 13.1 Platelet Count 341 Mean Platelet Volume 8.7 Neutrophils % 68.4 Lymphocytes % 25.3 Monocytes % 5.6 Eosinophils % 0.0 Basophils % 0.4 Nucleated Red Blood Cells % 0.0 Neutrophils # 4.6 Lymphocytes # 1.7 Monocytes # 0.4 Eosinophils # 0.0 Basophils # 0.0 Nucleated Red Blood Cells # 0.0 Prothrombin Time 12.5 Prothrombin Time Ratio 1.0 INR International Normalized Ratio 0.93 Sodium Level 144 144 Potassium Level 3.4 L 3.9 Chloride Level 103 106 Carbon Dioxide Level 30 32 H Anion Gap 14 10 Blood Urea Nitrogen 13 8 Creatinine 0.73 0.70 Glucose Level 94 123 Calcium Level 9.5 8.9 Total Bilirubin 0.2 0.1 L Direct Bilirubin 0.00 0.00 Indirect Bilirubin 0.2 0.1 Aspartate Amino Transf (AST/SGOT) 26 23 Alanine Aminotransferase (ALT/SGPT) 36 36 Alkaline Phosphatase 120 90 Total Protein 8.3 H 6.5 # Albumin 4.3 3.4 Globulin 4.00 H 3.10 Albumin/Globulin Ratio 1.07 1.09 Lipase 49 Bedside Glucose 116 111 Phosphorus Level 4.6 Magnesium Level 1.9 Triglycerides Level 205 H Cholesterol Level 187 LDL Cholesterol, Calculated 110 HDL Cholesterol 36 L Cholesterol/HDL Ratio 5.1 Free Thyroxine Index 2.31 Thyroxine (T4) 7.9 Triiodothyronine (T3) Uptake 29.3 Test 03/13/17 05:28 03/13/17 05:52 03/13/17 09:22 03/13/17 12:08 White Blood Count 4.8 # Red Blood Count 4.19 L Hemoglobin 11.8 L Hematocrit 35.7 L Mean Corpuscular Volume 85.2 Mean Corpuscular Hemoglobin 28.2 L Mean Corpuscular Hemoglobin Concent 33.1 Red Cell Distribution Width 13.0 Platelet Count 298 Mean Platelet Volume 8.9 Neutrophils % 65.7 Lymphocytes % 26.3 Monocytes % 7.4 Eosinophils % 0.0 Basophils % 0.4 Nucleated Red Blood Cells % 0.0 Neutrophils # 3.1 Lymphocytes # 1.3 Monocytes # 0.4 Eosinophils # 0.0 Basophils # 0.0 Nucleated Red Blood Cells # 0.0 Hemoglobin A1c 6.3 H Bedside Glucose 128 127 110 Medications Medications Current Medications Potassium Chloride/Dextrose/ Sod Cl (D5-1/2ns + KCl 20 Meq) 1,000 ml @ 100 mls/ hr Q10H IV Last administered on 03/13/17 09:34; Admin Dose 100 MLS/HR; Start 03/12/17 at 18:00 Ondansetron HCl (Zofran Inj) 4 mg Q6H PRN IV NAUSEA AND/OR VOMITING; Start 03/12/17 at 16:30 Morphine Sulfate (morphine) 2 mg Q4H PRN IV SEVERE PAIN LEVEL 7-10 Last administered on 03/13/17 09:34; Admin Dose 2 MG; Start 03/12/17 at 16:30 Salmeterol Xinafoate/ Fluticasone (Advair 100/50 Diskus) 1 inh BID INH ; Start 03/12/17 at 21:00 Diagnostic Test (Pha) (Accu-Chek) 1 ea 02 XX ; Start 03/13/17 at 02:00 Insulin Aspart (Novolog Insulin Pen) NOVOLOG *MILD* ALGORI... Q4 SC ; Start 03/12/17 at 21:00 Miscellaneous Information 1 ea NOTE XX ; Start 03/12/17 at 17:00 Glucose (Glutose) 15 gm Q15M PRN PO DECREASED GLUCOSE; Start 03/12/17 at 17:00 Glucose (Glutose) 22.5 gm Q15M PRN PO DECREASED GLUCOSE; Start 03/12/17 at 17: 00 Dextrose (D50w Syringe) 25 ml Q15M PRN IV DECREASED GLUCOSE; Start 03/12/17 at 17:00 Dextrose (D50w Syringe) 50 ml Q15M PRN IV DECREASED GLUCOSE; Start 03/12/17 at 17:00 Glucagon (Glucagen) 1 mg Q15M PRN IM DECREASED GLUCOSE; Start 03/12/17 at 17:00 Glucose 15 gm 15 gm Q15M PRN BUCCAL DECREASED GLUCOSE; Start 03/12/17 at 17:00 Levofloxacin/ Dextrose 100 ml @ 100 mls/hr Q24H IVPB Last administered on 09:24; Admin Dose 100 MLS/HR; Start 03/13/17 at 09:00 Metronidazole (Flagyl 500 Mg (Pmx)) 100 ml @ 100 mls/hr Q8 IVPB Last administered on 03/13/17 06:10; Admin Dose 100 MLS/HR; Start 03/12/17 at 22:00 BA LEWIS Mar 13, 2017 12:29
[2017-03-13 14:57] VITALS: BP 123/79; RESP 18
[2017-03-13 20:00] VITALS: BP 129/90; RESP 20
[2017-03-13] MEDS: ONDANSETRON 4 MG INJ IV PRN (21:30)
[2017-03-14] MEDS: INSULIN ASPART [NOVOLOG] 3 ML PEN SC SCH ×3 (01:00→08:33)
[2017-03-14] MEDS: ACCU-CHEK XX SCH (01:13)
[2017-03-14 01:59] VITALS: BP 114/70; RESP 20
[2017-03-14] MEDS: D5W-0.45 NACL + KCL 20 MEQ 1,000 ML IV SCH (05:22)
[2017-03-14] MEDS: metroNIDAZOLE 500 MG/NS (PMX) 100 ML IVPB SCH ×3 (05:22→21:12)
[2017-03-14 06:16] LABS: BASOPHILS % 0.6 % (0.0-2.0); HEMATOCRIT 36.8 % (37.0-47.0); HEMOGLOBIN 12.1 g/dl (12.0-16.0); LYMPHOCYTES # 1.6 10^3/ul (0.8-2.9); LYMPHOCYTES % 32.2 % (15.0-51.0); MEAN CORPUSCULAR HEMOGLOBIN 27.9 pg (29.0-33.0); MEAN CORPUSCULAR HGB CONC 32.9 g/dl (32.0-37.0); MEAN CORPUSCULAR VOLUME 84.8 fl (82.0-101.0); MEAN PLATELET VOLUME 8.9 fl (7.4-10.4); MONOCYTE # 0.3 10^3/ul (0.3-0.9); MONOCYTES % 7.1 % (0.0-11.0); NEUTROPHIL # 2.9 10^3/ul (1.6-7.5); NEUTROPHILS % 59.9 % (39.0-77.0); PLATELET COUNT 344 10^3/UL (140-415); RED BLOOD COUNT 4.34 10^6/ul (4.20-5.40); RED CELL DISTRIBUTION WIDTH 13.2 % (11.5-14.5); WHITE BLOOD COUNT 4.8 10^3/ul (4.8-10.8)
[2017-03-14 06:49] LABS: CALCIUM 8.9 mg/dl (8.4-10.2); CREATININE 0.72 mg/dl (0.44-1.00); POTASSIUM 3.7 mmol/L (3.5-5.1)
[2017-03-14] MEDS: morphine 2 MG INJ IV PRN ×2 (07:20→19:22)
[2017-03-14 07:33] VITALS: BP 120/76; RESP 16
[2017-03-14] MEDS: LEVOFLOXACIN 500MG/D5W (PMX) 100 ML IVPB SCH (08:23)
[2017-03-14] MEDS: SALMETEROL/FLUTICASONE 100/50 INHA INH SCH ×2 (08:27→20:29)
[2017-03-14] MEDS ORDERED: INSULIN ASPART [NOVOLOG] 3 ML PEN SC SCH (12:00)
[2017-03-14] MEDS: Insulin NOVOLOG SS MILD Algorithm (SS with meals and bedtime) SC SCH ×3 (12:00→20:30)
--- NOTE | 2017-03-14 13:17 | PN ---
BA LEWIS 03/14/17 1317: Date/Time of Note Date/Time of Note DATE: 03/14/17 TIME: 13:14 Assessment/Plan VTE Prophylaxis VTE Prophylaxis Intervention: ambulation Lines/Catheters IV Catheter Type (from [facility]): Saline Lock Assessment/Plan Chief Complaint/Hosp Course 1. Diverticulosis with lower GI bleed on admission, none today 2. Possible diverticulitis 3. Mild Asthma 4. Diabetes mellitus type II, controlled 5. Hypertension, controlled 6. Dyslipidemia Problems: Assessment/Plan 1. resolve constipation 2. Pt is still nauseated on clear liquid Subjective 24 Hr Interval Summary Gastrointestinal: constipation, pain Exam/Review of Systems Vital Signs Vitals Vital Signs Date Time Temp Pulse Resp B/P Pulse Ox O2 Delivery O2 Flow Rate FiO2 03/14/17 07:33 97.9 72 16 120/76 95 03/12/17 20:45 Room Air Intake and Output 03/13/17 03/13/17 03/14/17 15:00 23:00 07:00 Intake Total 100 ml 1460 ml 2100 ml Balance 100 ml 1460 ml 2100 ml Exam Constitutional: alert, oriented Cardiovascular: regular rate and rhythm Gastrointestinal: soft, tender Results Result Diagram: 03/14/17 0536 03/14/17 0536 Results 24 hrs Laboratory Tests Test 03/13/17 17:26 03/13/17 21:01 03/14/17 01:10 03/14/17 05:20 Bedside Glucose 114 112 136 146 Test 03/14/17 05:36 03/14/17 08:23 03/14/17 12:12 White Blood Count 4.8 Red Blood Count 4.34 Hemoglobin 12.1 Hematocrit 36.8 L Mean Corpuscular Volume 84.8 Mean Corpuscular Hemoglobin 27.9 L Mean Corpuscular Hemoglobin Concent 32.9 Red Cell Distribution Width 13.2 Platelet Count 344 Mean Platelet Volume 8.9 Neutrophils % 59.9 Lymphocytes % 32.2 Monocytes % 7.1 Eosinophils % 0.0 Basophils % 0.6 Nucleated Red Blood Cells % 0.0 Neutrophils # 2.9 Lymphocytes # 1.6 Monocytes # 0.3 Eosinophils # 0.0 Basophils # 0.0 Nucleated Red Blood Cells # 0.0 Sodium Level 143 Potassium Level 3.7 Chloride Level 105 Carbon Dioxide Level 28 Anion Gap 14 Blood Urea Nitrogen 4 L Creatinine 0.72 Glucose Level 142 Calcium Level 8.9 Bedside Glucose 165 131 Medications Medications Current Medications Potassium Chloride/Dextrose/ Sod Cl (D5-1/2ns + KCl 20 Meq) 1,000 ml @ 100 mls/ hr Q10H IV Last administered on 03/14/17 05:22; Admin Dose 100 MLS/HR; Start 03/12/17 at 18:00 Morphine Sulfate (morphine) 2 mg Q4H PRN IV SEVERE PAIN LEVEL 7-10 Last administered on 03/14/17 07:20; Admin Dose 2 MG; Start 03/12/17 at 16:30 Salmeterol Xinafoate/ Fluticasone (Advair 100/50 Diskus) 1 inh BID INH Last administered on 03/13/17 21:31; Admin Dose 1 INH; Start 03/12/17 at 21:00 Diagnostic Test (Pha) (Accu-Chek) 1 ea 02 XX ; Start 03/13/17 at 02:00 Miscellaneous Information 1 ea NOTE XX ; Start 03/12/17 at 17:00 Glucose (Glutose) 15 gm Q15M PRN PO DECREASED GLUCOSE; Start 03/12/17 at 17:00 Glucose (Glutose) 22.5 gm Q15M PRN PO DECREASED GLUCOSE; Start 03/12/17 at 17: 00 Dextrose (D50w Syringe) 25 ml Q15M PRN IV DECREASED GLUCOSE; Start 03/12/17 at 17:00 Dextrose (D50w Syringe) 50 ml Q15M PRN IV DECREASED GLUCOSE; Start 03/12/17 at 17:00 Glucagon (Glucagen) 1 mg Q15M PRN IM DECREASED GLUCOSE; Start 03/12/17 at 17:00 Glucose 15 gm 15 gm Q15M PRN BUCCAL DECREASED GLUCOSE; Start 03/12/17 at 17:00 Levofloxacin/ Dextrose 100 ml @ 100 mls/hr Q24H IVPB Last administered on 08:23; Admin Dose 100 MLS/HR; Start 03/13/17 at 09:00 Metronidazole (Flagyl 500 Mg (Pmx)) 100 ml @ 100 mls/hr Q8 IVPB Last administered on 03/14/17 13:04; Admin Dose 100 MLS/HR; Start 03/12/17 at 22:00 Ondansetron HCl (Zofran Inj) 4 mg Q4H PRN IV NAUSEA AND/OR VOMITING Last administered on 03/13/17t 21:30; Admin Dose 4 MG; Start 03/13/17 at 20:30 DANIEL NUÑEZ MD 03/14/17 1642: Assessment/Plan Assessment/Plan Assessment/Plan AGATHAB Mylanta Exam/Review of Systems Results Result Diagram: 03/14/17 0536 03/14/17 0536 BA LEWIS Mar 14, 2017 13:17 DANIEL NUÑEZ MD Mar 14, 2017 16:42
[2017-03-14 14:18] VITALS: BP 134/82; RESP 18
[2017-03-14] MEDS: ONDANSETRON 4 MG INJ IV PRN ×2 (16:11→21:52)
[2017-03-14] MEDS ORDERED: AL HYDROX/MG HYDROX/SIMETH 30 ML CUP PO PRN (17:00)
[2017-03-14] MEDS: LACTULOSE 30ML CUP PO PRN (19:24)
[2017-03-14 20:00] VITALS: BP 129/74; RESP 20
--- NOTE | 2017-03-14 21:46 | CONS ---
Date/Time of Note Date/Time of Note DATE: 03/14/17 TIME: 21:46 Assessment/Plan Assessment/Plan Chief Complaint/Hosp Course Assessment: Lower GI bleed-hemorrhoids versus diverticular Lower abd pain- r/t diverticulitis Possible diverticulitis-on antibiotics Asthma Diabetes Hypertension Dyslipidemia Plan: continue Levaquin/Flagyl advance diet to clears (I wrote this order) Patient considered high risk for perforation if proceed with colonoscopy, so will hold off colonoscopy for now If tolerate clears and no hematochezia, can switch abx to oral tomorow in anticipation of discharge Problems: Consultation Date/Type/Reason Admit Date/Time Mar 12, 2017 at 15:28 Initial Consult Date 03/12/17 Type of Consultation: GI 24 HR Interval Summary Free Text/Dictation still nausea, no vomiting, no gi bleed Exam/Review of Systems Vital Signs Vitals Vital Signs Date Time Temp Pulse Resp B/P Pulse Ox O2 Delivery O2 Flow Rate FiO2 03/14/17 20:00 98.9 72 20 129/74 96 03/12/17 20:45 Room Air Intake and Output 03/13/17 03/13/17 03/14/17 15:00 23:00 07:00 Intake Total 100 ml 1460 ml 2100 ml Balance 100 ml 1460 ml 2100 ml Exam Constitutional: alert, oriented, well developed Psych: nl mood/affect, no complaints Head: atraumatic, normocephalic Eyes: EOMI, nl conjunctiva, nl lids ENMT: nl external ears & nose, nl lips & teeth, nl nasal mucosa & septum Neck: non-tender, supple Respiratory: clear to auscultation, normal air movement Cardiovascular: nl pulses, regular rate and rhythm Gastrointestinal: bowel sounds, non-tender, soft Results Result Diagram: 03/14/17 0536 03/14/17 0536 Results 24 hrs Laboratory Tests Test 03/14/17 01:10 03/14/17 05:20 03/14/17 05:36 03/14/17 08:23 Bedside Glucose 136 146 165 White Blood Count 4.8 Red Blood Count 4.34 Hemoglobin 12.1 Hematocrit 36.8 L Mean Corpuscular Volume 84.8 Mean Corpuscular Hemoglobin 27.9 L Mean Corpuscular Hemoglobin Concent 32.9 Red Cell Distribution Width 13.2 Platelet Count 344 Mean Platelet Volume 8.9 Neutrophils % 59.9 Lymphocytes % 32.2 Monocytes % 7.1 Eosinophils % 0.0 Basophils % 0.6 Nucleated Red Blood Cells % 0.0 Neutrophils # 2.9 Lymphocytes # 1.6 Monocytes # 0.3 Eosinophils # 0.0 Basophils # 0.0 Nucleated Red Blood Cells # 0.0 Sodium Level 143 Potassium Level 3.7 Chloride Level 105 Carbon Dioxide Level 28 Anion Gap 14 Blood Urea Nitrogen 4 L Creatinine 0.72 Glucose Level 142 Calcium Level 8.9 Test 03/14/17 12:12 03/14/17 17:13 03/14/17 20:27 Bedside Glucose 131 114 105 Medications Medications Current Medications Potassium Chloride/Dextrose/ Sod Cl (D5-1/2ns + KCl 20 Meq) 1,000 ml @ 50 mls/ hr Q20H IV Last administered on 03/14/17 05:22; Admin Dose 100 MLS/HR; Start 03/12/17 at 18:00 Morphine Sulfate (morphine) 2 mg Q4H PRN IV SEVERE PAIN LEVEL 7-10 Last administered on 03/14/17 19:22; Admin Dose 2 MG; Start 03/12/17 at 16:30 Salmeterol Xinafoate/ Fluticasone (Advair 100/50 Diskus) 1 inh BID INH Last administered on 03/14/17 20:29; Admin Dose 1 INH; Start 03/12/17 at 21:00 Diagnostic Test (Pha) (Accu-Chek) 1 ea 02 XX ; Start 03/13/17 at 02:00 Miscellaneous Information 1 ea NOTE XX ; Start 03/12/17 at 17:00 Glucose (Glutose) 15 gm Q15M PRN PO DECREASED GLUCOSE; Start 03/12/17 at 17:00 Glucose (Glutose) 22.5 gm Q15M PRN PO DECREASED GLUCOSE; Start 03/12/17 at 17: 00 Dextrose (D50w Syringe) 25 ml Q15M PRN IV DECREASED GLUCOSE; Start 03/12/17 at 17:00 Dextrose (D50w Syringe) 50 ml Q15M PRN IV DECREASED GLUCOSE; Start 03/12/17 at 17:00 Glucagon (Glucagen) 1 mg Q15M PRN IM DECREASED GLUCOSE; Start 03/12/17 at 17:00 Glucose 15 gm 15 gm Q15M PRN BUCCAL DECREASED GLUCOSE; Start 03/12/17 at 17:00 Levofloxacin/ Dextrose 100 ml @ 100 mls/hr Q24H IVPB Last administered on 08:23; Admin Dose 100 MLS/HR; Start 03/13/17 at 09:00 Metronidazole (Flagyl 500 Mg (Pmx)) 100 ml @ 100 mls/hr Q8 IVPB Last administered on 03/14/17 21:12; Admin Dose 100 MLS/HR; Start 03/12/17 at 22:00 Ondansetron HCl (Zofran Inj) 4 mg Q4H PRN IV NAUSEA AND/OR VOMITING Last administered on 03/14/17 16:11; Admin Dose 4 MG; Start 03/13/17 at 20:30 Lactulose (Enulose) 10 gm DAILY PRN PO CONSTIPATION Last administered on 19:24; Admin Dose 10 GM; Start 03/14/17 at 13:30 Al Hydrox/Mg Hydrox/Simethicone (Mag-Al Plus) 30 ml Q6H PRN PO GASTROINTESTINAL UPSET Last administered on 03/14/17 17:13; Admin Dose 30 ML; Start 03/14/17 at 17:00 BUSHRA BUSTOS MD Mar 14, 2017 21:46
[2017-03-15] MEDS: ACCU-CHEK XX SCH (00:06)
[2017-03-15] MEDS: D5W-0.45 NACL + KCL 20 MEQ 1,000 ML IV SCH ×3 (00:13→22:14)
[2017-03-15 02:00] VITALS: BP 117/71; RESP 20
[2017-03-15] MEDS: metroNIDAZOLE 500 MG/NS (PMX) 100 ML IVPB SCH ×3 (05:22→22:14)
[2017-03-15 07:44] VITALS: BP 130/80; RESP 20
[2017-03-15] MEDS: LEVOFLOXACIN 500MG/D5W (PMX) 100 ML IVPB SCH (08:09)
[2017-03-15] MEDS: SALMETEROL/FLUTICASONE 100/50 INHA INH SCH ×2 (08:09→20:45)
[2017-03-15] MEDS: Insulin NOVOLOG SS MILD Algorithm (SS with meals and bedtime) SC SCH ×4 (08:19→20:45)
--- NOTE | 2017-03-15 08:24 | RADRPT ---
PROCEDURE: XR Abdomen. CLINICAL INDICATION: Abdominal pain TECHNIQUE: 2 frontal AP views of the abdomen are available for review. COMPARISON: None. FINDINGS: The bowel gas pattern is normal. There is no evidence of obstruction. Significant stool seen through out the colon consistent with mild constipation. There are no abnormal calcifications overlying the urinary tracts. The osseous structures are unremarkable. Interspinous spacer at the L5-S1 level is i dentified. IMPRESSION: 1. Mild diffuse colonic constipation. 2. No evidence for bowel distension or bowel obstruction. RPTAT: HMJB .Haroon Gibbs MD, MD Date Time Electronically viewed and signed by .Haroon Gibbs MD, MD on 03/15/2017 08:23 .B/
--- NOTE | 2017-03-15 10:00 | PN ---
BA LLOYD 03/15/17 1000: Date/Time of Note Date/Time of Note DATE: 03/15/17 TIME: 10:00 Assessment/Plan VTE Prophylaxis VTE Prophylaxis Intervention: ambulation Lines/Catheters IV Catheter Type (from Nrsg): Peripheral IV Assessment/Plan Chief Complaint/Hosp Course 1. Diverticulosis with lower GI bleed on admission, none today 2. Diverticulitis 3. Mild Asthma 4. Diabetes mellitus type II, controlled 5. Hypertension, controlled 6. Dyslipidemia Problems: Assessment/Plan 1. Per GI advance diet as tolerated 2. relieve constipation Exam/Review of Systems Vital Signs Vitals Vital Signs Date Time Temp Pulse Resp B/P Pulse Ox O2 Delivery O2 Flow Rate FiO2 03/15/17 07:44 97.0 78 20 130/80 98 03/12/17 20:45 Room Air Intake and Output 03/14/17 03/14/17 03/15/17 15:00 23:00 07:00 Intake Total 300 ml 4060 ml 1050 ml Balance 300 ml 4060 ml 1050 ml Results Result Diagram: 03/14/17 0536 03/14/17 0536 Results 24 hrs Laboratory Tests Test 03/14/17 12:12 03/14/17 17:13 03/14/17 20:27 03/15/17 08:07 Bedside Glucose 131 114 105 141 Medications Medications Current Medications Potassium Chloride/Dextrose/ Sod Cl (D5-1/2ns + KCl 20 Meq) 1,000 ml @ 50 mls/ hr Q20H IV Last administered on 03/15/17 00:13; Admin Dose 50 MLS/HR; Start 03/12/17 at 18:00 Morphine Sulfate (morphine) 2 mg Q4H PRN IV SEVERE PAIN LEVEL 7-10 Last administered on 03/14/17 19:22; Admin Dose 2 MG; Start 03/12/17 at 16:30 Salmeterol Xinafoate/ Fluticasone (Advair 100/50 Diskus) 1 inh BID INH Last administered on 03/15/17 08:09; Admin Dose 1 INH; Start 03/12/17 at 21:00 Diagnostic Test (Pha) (Accu-Chek) 1 ea 02 XX ; Start 03/13/17 at 02:00 Miscellaneous Information 1 ea NOTE XX ; Start 03/12/17 at 17:00 Glucose (Glutose) 15 gm Q15M PRN PO DECREASED GLUCOSE; Start 03/12/17 at 17:00 Glucose (Glutose) 22.5 gm Q15M PRN PO DECREASED GLUCOSE; Start 03/12/17 at 17: 00 Dextrose (D50w Syringe) 25 ml Q15M PRN IV DECREASED GLUCOSE; Start 03/12/17 at 17:00 Dextrose (D50w Syringe) 50 ml Q15M PRN IV DECREASED GLUCOSE; Start 03/12/17 at 17:00 Glucagon (Glucagen) 1 mg Q15M PRN IM DECREASED GLUCOSE; Start 03/12/17 at 17:00 Glucose 15 gm 15 gm Q15M PRN BUCCAL DECREASED GLUCOSE; Start 03/12/17 at 17:00 Levofloxacin/ Dextrose 100 ml @ 100 mls/hr Q24H IVPB Last administered on 08:09; Admin Dose 100 MLS/HR; Start 03/13/17 at 09:00 Metronidazole (Flagyl 500 Mg (Pmx)) 100 ml @ 100 mls/hr Q8 IVPB Last administered on 03/15/17 05:22; Admin Dose 100 MLS/HR; Start 03/12/17 at 22:00 Ondansetron HCl (Zofran Inj) 4 mg Q4H PRN IV NAUSEA AND/OR VOMITING Last administered on 03/14/17 21:52; Admin Dose 4 MG; Start 03/13/17 at 20:30 Lactulose (Enulose) 10 gm DAILY PRN PO CONSTIPATION Last administered on 19:24; Admin Dose 10 GM; Start 03/14/17 at 13:30 Al Hydrox/Mg Hydrox/Simethicone (Mag-Al Plus) 30 ml Q6H PRN PO GASTROINTESTINAL UPSET Last administered on 03/14/17 17:13; Admin Dose 30 ML; Start 03/14/17 at 17:00 DANIEL NUÑEZ MD 03/15/17 1502: Assessment/Plan Assessment/Plan Assessment/Plan Pt vomiited when diet advanced to regular diet Resume back clear liquid diet, zofran will obtain CT A+P if does not improve Exam/Review of Systems Results Result Diagram: 03/14/17 0536 03/14/17 0536 BA LEWIS Mar 15, 2017 10:00 DANIEL NUÑEZ MD Mar 15, 2017 15:02
--- NOTE | 2017-03-15 10:17 | CONS ---
Date/Time of Note Date/Time of Note DATE: 03/15/17 TIME: 10:15 Assessment/Plan Assessment/Plan Chief Complaint/Hosp Course Assessment: Lower GI bleed-hemorrhoids versus diverticular Lower abd pain- r/t diverticulitis Possible diverticulitis-on antibiotics Asthma Diabetes Hypertension Dyslipidemia Plan: continue Levaquin/Flagyl advance diet to low fat (I wrote this order) Patient considered high risk for perforation if proceed with colonoscopy, so will hold off colonoscopy for now ok to dc from GI perspective if tolerate low fat diet if ok with primary and other consultants Problems: Consultation Date/Type/Reason Admit Date/Time Mar 12, 2017 at 15:28 Initial Consult Date 03/12/17 Type of Consultation: GI 24 HR Interval Summary Free Text/Dictation no n/v, no bm, LLQ pain improved Constitutional: improved Exam/Review of Systems Vital Signs Vitals Vital Signs Date Time Temp Pulse Resp B/P Pulse Ox O2 Delivery O2 Flow Rate FiO2 03/15/17 07:44 97.0 78 20 130/80 98 03/12/17 20:45 Room Air Intake and Output 03/14/17 03/14/17 03/15/17 14:59 22:59 06:59 Intake Total 300 ml 4060 ml 1050 ml Balance 300 ml 4060 ml 1050 ml Exam Constitutional: alert, oriented, well developed Psych: nl mood/affect, no complaints Head: atraumatic, normocephalic Eyes: EOMI, nl conjunctiva, nl lids ENMT: nl external ears & nose, nl lips & teeth, nl nasal mucosa & septum Neck: non-tender, supple Respiratory: clear to auscultation, normal air movement Cardiovascular: nl pulses, regular rate and rhythm Gastrointestinal: bowel sounds, non-tender, soft Results Result Diagram: 03/14/17 0536 03/14/17 0536 Results 24 hrs Laboratory Tests Test 03/14/17 12:12 03/14/17 17:13 03/14/17 20:27 03/15/17 08:07 Bedside Glucose 131 114 105 141 Medications Medications Current Medications Potassium Chloride/Dextrose/ Sod Cl (D5-1/2ns + KCl 20 Meq) 1,000 ml @ 50 mls/ hr Q20H IV Last administered on 03/15/17t 00:13; Admin Dose 50 MLS/HR; Start 03/12/17 at 18:00 Morphine Sulfate (morphine) 2 mg Q4H PRN IV SEVERE PAIN LEVEL 7-10 Last administered on 03/14/17 19:22; Admin Dose 2 MG; Start 03/12/17 at 16:30 Salmeterol Xinafoate/ Fluticasone (Advair 100/50 Diskus) 1 inh BID INH Last administered on 03/15/17 08:09; Admin Dose 1 INH; Start 03/12/17 at 21:00 Diagnostic Test (Pha) (Accu-Chek) 1 ea 02 XX ; Start 03/13/17 at 02:00 Miscellaneous Information 1 ea NOTE XX ; Start 03/12/17 at 17:00 Glucose (Glutose) 15 gm Q15M PRN PO DECREASED GLUCOSE; Start 03/12/17 at 17:00 Glucose (Glutose) 22.5 gm Q15M PRN PO DECREASED GLUCOSE; Start 03/12/17 at 17: 00 Dextrose (D50w Syringe) 25 ml Q15M PRN IV DECREASED GLUCOSE; Start 03/12/17 at 17:00 Dextrose (D50w Syringe) 50 ml Q15M PRN IV DECREASED GLUCOSE; Start 03/12/17 at 17:00 Glucagon (Glucagen) 1 mg Q15M PRN IM DECREASED GLUCOSE; Start 03/12/17 at 17:00 Glucose 15 gm 15 gm Q15M PRN BUCCAL DECREASED GLUCOSE; Start 03/12/17 at 17:00 Levofloxacin/ Dextrose 100 ml @ 100 mls/hr Q24H IVPB Last administered on 08:09; Admin Dose 100 MLS/HR; Start 03/13/17 at 09:00 Metronidazole (Flagyl 500 Mg (Pmx)) 100 ml @ 100 mls/hr Q8 IVPB Last administered on 03/15/17 05:22; Admin Dose 100 MLS/HR; Start 03/12/17 at 22:00 Ondansetron HCl (Zofran Inj) 4 mg Q4H PRN IV NAUSEA AND/OR VOMITING Last administered on 03/14/17 21:52; Admin Dose 4 MG; Start 03/13/17 at 20:30 Lactulose (Enulose) 10 gm DAILY PRN PO CONSTIPATION Last administered on 19:24; Admin Dose 10 GM; Start 03/14/17 at 13:30 Al Hydrox/Mg Hydrox/Simethicone (Mag-Al Plus) 30 ml Q6H PRN PO GASTROINTESTINAL UPSET Last administered on 03/14/17t 17:13; Admin Dose 30 ML; Start 03/14/17 at 17:00 BUSHRA BUSTOS MD Mar 15, 2017 10:17
[2017-03-15] MEDS: ONDANSETRON 4 MG INJ IV PRN (13:00)
[2017-03-15 14:14] VITALS: BP 116/79; RESP 20
[2017-03-15] MEDS: LACTULOSE 30ML CUP PO PRN (14:53)
[2017-03-15 20:00] VITALS: BP 125/87; RESP 20
[2017-03-15] MEDS: morphine 2 MG INJ IV PRN (22:22)
[2017-03-16 02:00] VITALS: BP 112/67; RESP 20
[2017-03-16] MEDS: ACCU-CHEK XX SCH (02:00)
[2017-03-16] MEDS: metroNIDAZOLE 500 MG/NS (PMX) 100 ML IVPB SCH ×3 (05:58→21:20)
[2017-03-16 07:42] VITALS: BP 126/83; RESP 16
[2017-03-16] MEDS: Insulin NOVOLOG SS MILD Algorithm (SS with meals and bedtime) SC SCH ×4 (08:00→21:00)
[2017-03-16] MEDS: LEVOFLOXACIN 500MG/D5W (PMX) 100 ML IVPB SCH (08:11)
[2017-03-16] MEDS: SALMETEROL/FLUTICASONE 100/50 INHA INH SCH ×2 (08:11→21:21)
[2017-03-16] MEDS: ONDANSETRON 4 MG INJ IV PRN (10:18)
--- NOTE | 2017-03-16 11:07 | PN ---
Date/Time of Note Date/Time of Note DATE: 03/16/17 TIME: 11:04 Assessment/Plan VTE Prophylaxis VTE Prophylaxis Intervention: ambulation Lines/Catheters IV Catheter Type (from Nrsg): Peripheral IV Assessment/Plan Chief Complaint/Hosp Course 56 Y/O with #Lower GI bleed-hemorrhoids versus diverticular # Lower abd pain- r/t diverticulitis #Asthma #Diabetes #Hypertension # Dyslipidemia # hx of Gastric ulcer Recs - Start PPI - DC Kcl fluids - advance full liquids slowly - pain control - c.w levaquin/flagyl - c/w ISS Problems: Subjective 24 Hr Interval Summary Free Text/Dictation Pt felt nausea today after apple juice Pt on iv KCL and is not on her regular PPI for hx ulcer disease Exam/Review of Systems Vital Signs Vitals Vital Signs Date Time Temp Pulse Resp B/P Pulse Ox O2 Delivery O2 Flow Rate FiO2 03/16/17 07:42 97.9 78 16 126/83 98 03/12/17 20:45 Room Air Intake and Output 03/15/17 03/15/17 03/16/17 14:59 22:59 06:59 Intake Total 350 ml 2200 ml 1330 ml Output Total 500 ml 1250 ml 2 ml Balance -150 ml 950 ml 1328 ml Exam Constitutional: alert, oriented, well developed Psych: nl mood/affect, no complaints Head: atraumatic, normocephalic Eyes: EOMI, nl conjunctiva, nl lids ENMT: nl external ears & nose, nl lips & teeth, nl nasal mucosa & septum Neck: non-tender, supple Respiratory: clear to auscultation, normal air movement Cardiovascular: nl pulses, regular rate and rhythm Gastrointestinal: bowel sounds, non-tender, soft Results Result Diagram: 03/14/17 0536 03/14/17 0536 Results 24 hrs Laboratory Tests Test 03/15/17 12:09 03/15/17 17:17 03/15/17 20:44 03/16/17 08:06 Bedside Glucose 120 143 132 132 Medications Medications Current Medications Morphine Sulfate (morphine) 2 mg Q4H PRN IV SEVERE PAIN LEVEL 7-10 Last administered on 03/15/17t 22:22; Admin Dose 2 MG; Start 03/12/17 at 16:30 Salmeterol Xinafoate/ Fluticasone (Advair 100/50 Diskus) 1 inh BID INH Last administered on 03/16/17 08:11; Admin Dose 1 INH; Start 03/12/17 at 21:00 Diagnostic Test (Pha) (Accu-Chek) 1 ea 02 XX ; Start 03/13/17 at 02:00 Miscellaneous Information 1 ea NOTE XX ; Start 03/12/17 at 17:00 Glucose (Glutose) 15 gm Q15M PRN PO DECREASED GLUCOSE; Start 03/12/17 at 17:00 Glucose (Glutose) 22.5 gm Q15M PRN PO DECREASED GLUCOSE; Start 03/12/17 at 17: 00 Dextrose (D50w Syringe) 25 ml Q15M PRN IV DECREASED GLUCOSE; Start 03/12/17 at 17:00 Dextrose (D50w Syringe) 50 ml Q15M PRN IV DECREASED GLUCOSE; Start 03/12/17 at 17:00 Glucagon (Glucagen) 1 mg Q15M PRN IM DECREASED GLUCOSE; Start 03/12/17 at 17:00 Glucose 15 gm 15 gm Q15M PRN BUCCAL DECREASED GLUCOSE; Start 03/12/17 at 17:00 Levofloxacin/ Dextrose 100 ml @ 100 mls/hr Q24H IVPB Last administered on 08:11; Admin Dose 100 MLS/HR; Start 03/13/17 at 09:00 Metronidazole (Flagyl 500 Mg (Pmx)) 100 ml @ 100 mls/hr Q8 IVPB Last administered on 03/16/17 05:58; Admin Dose 100 MLS/HR; Start 03/12/17 at 22:00 Ondansetron HCl (Zofran Inj) 4 mg Q4H PRN IV NAUSEA AND/OR VOMITING Last administered on 03/16/17 10:18; Admin Dose 4 MG; Start 03/13/17 at 20:30 Lactulose (Enulose) 10 gm DAILY PRN PO CONSTIPATION Last administered on 14:53; Admin Dose 10 GM; Start 03/14/17 at 13:30 Al Hydrox/Mg Hydrox/Simethicone (Mag-Al Plus) 30 ml Q6H PRN PO GASTROINTESTINAL UPSET Last administered on 03/14/17 17:13; Admin Dose 30 ML; Start 03/14/17 at 17:00 DANIEL NUÑEZ MD Mar 16, 2017 11:07
[2017-03-16 11:12] LABS: BASOPHILS % 0.4 % (0.0-2.0); HEMATOCRIT 37.1 % (37.0-47.0); HEMOGLOBIN 12.3 g/dl (12.0-16.0); LYMPHOCYTES # 1.3 10^3/ul (0.8-2.9); LYMPHOCYTES % 25.5 % (15.0-51.0); MEAN CORPUSCULAR HGB CONC 33.2 g/dl (32.0-37.0); MEAN CORPUSCULAR VOLUME 84.3 fl (82.0-101.0); MONOCYTE # 0.3 10^3/ul (0.3-0.9); MONOCYTES % 5.5 % (0.0-11.0); NEUTROPHIL # 3.5 10^3/ul (1.6-7.5); NEUTROPHILS % 68.4 % (39.0-77.0); PLATELET COUNT 320 10^3/UL (140-415); RED CELL DISTRIBUTION WIDTH 13.5 % (11.5-14.5); WHITE BLOOD COUNT 5.1 10^3/ul (4.8-10.8)
[2017-03-16 11:37] LABS: CREATININE 0.69 mg/dl (0.44-1.00); POTASSIUM 3.9 mmol/L (3.5-5.1)
[2017-03-16] MEDS: PANTOPRAZOLE (EC) 40 MG TAB PO SCH (11:42)
[2017-03-16 14:04] VITALS: BP 141/87; RESP 16
[2017-03-16] MEDS ORDERED: traZODone 50 MG TAB PO PRN (17:00)
[2017-03-16 19:52] VITALS: BP 126/85; RESP 20
[2017-03-17] MEDS ORDERED: BUSP15TA3 PO (00:45)
[2017-03-17] MEDS ORDERED: PREG50CA PO (00:45)
[2017-03-17] MEDS ORDERED: DULO60CA6 PO (00:45)
[2017-03-17 02:00] VITALS: BP 136/81; RESP 20
[2017-03-17] MEDS: ACCU-CHEK XX SCH (02:00)
[2017-03-17] MEDS: PANTOPRAZOLE (EC) 40 MG TAB PO SCH (05:46)
[2017-03-17] MEDS: metroNIDAZOLE 500 MG/NS (PMX) 100 ML IVPB SCH ×2 (05:46→14:00)
[2017-03-17 06:02] LABS: BASOPHIL # 0.1 10^3/ul (0.0-0.1); BASOPHILS % 0.9 % (0.0-2.0); HEMATOCRIT 35.8 % (37.0-47.0); HEMOGLOBIN 12.3 g/dl (12.0-16.0); LYMPHOCYTES # 1.6 10^3/ul (0.8-2.9); LYMPHOCYTES % 30.4 % (15.0-51.0); MEAN CORPUSCULAR HGB CONC 34.4 g/dl (32.0-37.0); MEAN CORPUSCULAR VOLUME 84.4 fl (82.0-101.0); MEAN PLATELET VOLUME 9.1 fl (7.4-10.4); MONOCYTE # 0.3 10^3/ul (0.3-0.9); MONOCYTES % 5.5 % (0.0-11.0); NEUTROPHIL # 3.3 10^3/ul (1.6-7.5); PLATELET COUNT 335 10^3/UL (140-415); RED BLOOD COUNT 4.24 10^6/ul (4.20-5.40); RED CELL DISTRIBUTION WIDTH 13.6 % (11.5-14.5); WHITE BLOOD COUNT 5.3 10^3/ul (4.8-10.8)
[2017-03-17 06:29] LABS: ALBUMIN 4.1 g/dl (3.3-4.9); ALBUMIN/GLOBULIN RATIO 1.28; BILIRUBIN,INDIRECT 0.3 mg/dl (0-1.1); BILIRUBIN,TOTAL 0.3 mg/dl (0.2-1.3); CALCIUM 9.2 mg/dl (8.4-10.2); CREATININE 0.69 mg/dl (0.44-1.00); POTASSIUM 3.8 mmol/L (3.5-5.1); TOTAL PROTEIN 7.3 g/dl (6.1-8.1)
[2017-03-17 06:57] LABS: MAGNESIUM 1.8 mg/dl (1.7-2.5); PHOSPHORUS 5.2 mg/dl (2.5-4.9)
[2017-03-17 07:50] VITALS: BP 118/72; RESP 20
[2017-03-17] MEDS: Insulin NOVOLOG SS MILD Algorithm (SS with meals and bedtime) SC SCH ×2 (08:00→12:00)
[2017-03-17] MEDS: SALMETEROL/FLUTICASONE 100/50 INHA INH SCH (08:48)
[2017-03-17] MEDS: LEVOFLOXACIN 500MG/D5W (PMX) 100 ML IVPB SCH (09:08)
--- NOTE | 2017-03-17 11:34 | PN ---
Date/Time of Note Date/Time of Note DATE: 03/17/17 TIME: 11:29 Assessment/Plan VTE Prophylaxis VTE Prophylaxis Intervention: SCD's Lines/Catheters IV Catheter Type (from Nrs): Saline Lock Assessment/Plan Chief Complaint/Hosp Course Summary Assessment and Plan: Assessment: Lower GI bleed-hemorrhoids versus diverticular Lower abd pain- r/t diverticulitis Possible diverticulitis-on antibiotics Asthma Diabetes Hypertension Dyslipidemia Plan: Continue Levaquin/Flagyl Continue diet to low fat Patient considered high risk for perforation if proceed with colonoscopy, so will hold off colonoscopy for now Ok to dc from GI perspective if tolerate low fat diet if ok with primary and other consultants She seen in collaboration with Dr. Garnica Subjective: Course reviewed with nursing staff Patient interviewed and examined All labs, imaging and other results reviewed The patient feeling much better, denies abd pain, nausea and vomiting, or any further episodes of rectal bleeding Ok to be d/c'd for GI point of view. PHYSICAL EXAMINATION: GENERAL: Well developed, well nourished, alert & oriented x 3, in no acute distress SKIN: No lesions, no stigmata chronic liver disease, no evidence of bleeding diathesis LYMPHATIC: No palpable lymphadenopathy. HEAD: Normocephalic, atraumatic, no tenderness. EYES: Pupils equal reactive to light and accommodation, full extraocular movements, sclera clear, e. EARS/NOSE AND THROAT: Ears normal, nose normal,oral membranes well hydrated without lesions. NECK: Supple, no masses, CHEST: Inspection within normal limits. CARDIOVASCULAR: Heart: Regular rate and rhythm, no murmurs, gallops or rubs. RESPIRATORY: Lungs clear to auscultation GASTROINTESTINAL AND LIVER: Abdomen: Soft, tenderness, non-distended, no hernias, no masses, no organomegaly, no ascites no rebound tenderness, normoactive bowel sounds. Rectal: Deferred. EXTREMITIES: No cyanosis, clubbing or edema. Problems: Exam/Review of Systems Vital Signs Vitals Vital Signs Date Time Temp Pulse Resp B/P Pulse Ox O2 Delivery O2 Flow Rate FiO2 03/17/17 07:50 97.5 74 20 118/72 96 Intake and Output 03/16/17 03/16/17 03/17/17 15:00 23:00 07:00 Intake Total 250 ml 1120 ml 500 ml Balance 250 ml 1120 ml 500 ml Results Result Diagram: 03/17/17 0521 03/17/17 0521 Results 24 hrs Laboratory Tests Test 03/16/17 11:59 03/16/17 17:14 03/16/17 21:23 03/17/17 05:21 Bedside Glucose 127 110 110 White Blood Count 5.3 Red Blood Count 4.24 Hemoglobin 12.3 Hematocrit 35.8 L Mean Corpuscular Volume 84.4 Mean Corpuscular Hemoglobin 29.0 Mean Corpuscular Hemoglobin Concent 34.4 Red Cell Distribution Width 13.6 Platelet Count 335 Mean Platelet Volume 9.1 Neutrophils % 63.0 Lymphocytes % 30.4 Monocytes % 5.5 Eosinophils % 0.0 Basophils % 0.9 Nucleated Red Blood Cells % 0.0 Neutrophils # 3.3 Lymphocytes # 1.6 Monocytes # 0.3 Eosinophils # 0.0 Basophils # 0.1 Nucleated Red Blood Cells # 0.0 Sodium Level 142 Potassium Level 3.8 Chloride Level 107 Carbon Dioxide Level 26 Anion Gap 13 Blood Urea Nitrogen 6 L Creatinine 0.69 Glucose Level 123 Calcium Level 9.2 Phosphorus Level 5.2 H Magnesium Level 1.8 Total Bilirubin 0.3 Direct Bilirubin 0.00 Indirect Bilirubin 0.3 Aspartate Amino Transf (AST/SGOT) 31 Alanine Aminotransferase (ALT/SGPT) 37 Alkaline Phosphatase 91 Total Protein 7.3 Albumin 4.1 Globulin 3.20 Albumin/Globulin Ratio 1.28 Test 03/17/17 07:59 Bedside Glucose 128 Medications Medications Current Medications Morphine Sulfate (morphine) 2 mg Q4H PRN IV SEVERE PAIN LEVEL 7-10 Last administered on 03/15/17 22:22; Admin Dose 2 MG; Start 03/12/17 at 16:30 Salmeterol Xinafoate/ Fluticasone (Advair 100/50 Diskus) 1 inh BID INH Last administered on 03/17/17 08:48; Admin Dose 1 INH; Start 03/12/17 at 21:00 Diagnostic Test (Pha) (Accu-Chek) 1 ea 02 XX ; Start 03/13/17 at 02:00 Miscellaneous Information 1 ea NOTE XX ; Start 03/12/17 at 17:00 Glucose (Glutose) 15 gm Q15M PRN PO DECREASED GLUCOSE; Start 03/12/17 at 17:00 Glucose (Glutose) 22.5 gm Q15M PRN PO DECREASED GLUCOSE; Start 03/12/17 at 17: 00 Dextrose (D50w Syringe) 25 ml Q15M PRN IV DECREASED GLUCOSE; Start 03/12/17 at 17:00 Dextrose (D50w Syringe) 50 ml Q15M PRN IV DECREASED GLUCOSE; Start 03/12/17 at 17:00 Glucagon (Glucagen) 1 mg Q15M PRN IM DECREASED GLUCOSE; Start 03/12/17 at 17:00 Glucose 15 gm 15 gm Q15M PRN BUCCAL DECREASED GLUCOSE; Start 03/12/17 at 17:00 Levofloxacin/ Dextrose 100 ml @ 100 mls/hr Q24H IVPB Last administered on 09:08; Admin Dose 100 MLS/HR; Start 03/13/17 at 09:00 Metronidazole (Flagyl 500 Mg (Pmx)) 100 ml @ 100 mls/hr Q8 IVPB Last administered on 03/17/17 05:46; Admin Dose 100 MLS/HR; Start 03/12/17 at 22:00 Ondansetron HCl (Zofran Inj) 4 mg Q4H PRN IV NAUSEA AND/OR VOMITING Last administered on 03/16/17 10:18; Admin Dose 4 MG; Start 03/13/17 at 20:30 Lactulose (Enulose) 10 gm DAILY PRN PO CONSTIPATION Last administered on 14:53; Admin Dose 10 GM; Start 03/14/17 at 13:30 Al Hydrox/Mg Hydrox/Simethicone (Mag-Al Plus) 30 ml Q6H PRN PO GASTROINTESTINAL UPSET Last administered on 03/14/17 17:13; Admin Dose 30 ML; Start 03/14/17 at 17:00 Pantoprazole (Protonix Tab) 40 mg 06 PO Last administered on 03/17/17 05:46; Admin Dose 40 MG; Start 03/16/17 at 11:30 Trazodone HCl (Desyrel) 50 mg HS PRN PO FOR INSOMNIA; Start 03/16/17 at 17:00 HILDA RIVAS Mar 17, 2017 11:34
--- NOTE | 2017-03-17 13:10 | PDOCDIS ---
Discharge Instructions DIAGNOSIS Discharge Diagnosis diverticultis+ CONDITION Patient Condition: Fair HOME CARE INSTRUCTIONS: Diet Instructions: Modified FatSpecial Diet: FULL LIQUID ACTIVITY: Activity Restrictions: No Restrictions FOLLOW UP/APPOINTMENTS Follow-up Plan f/u pcp in 1 -2 weeks f/u Gi outapatient in 1 -2 weeks for colonoscopy Return to ER if has abdominal pain, fevers and chills DANIEL NUÑZE MD Mar 17, 2017 13:10
[2017-03-17] MEDS ORDERED: METR250T PO (13:11)
[2017-03-17] MEDS ORDERED: CIPR-193 PO (13:11)
[2017-03-17 14:05] VITALS: BP 126/82; RESP 20
--- NOTE | 2017-03-17 18:31 | DS ---
DATE OF ADMISSION: 03/12/2017 DATE OF DISCHARGE: 03/17/2017 HISTORY OF PRESENT ILLNESS/HOSPITAL COURSE: This is a 56-year-old woman with a past medical history of asthma, non-insulin dependent diabetes mellitus, hypertension, presented to the emergency depart ment complaining of lower abdominal pain associated with bright red blood per rectum. States that t he bleeding began after a bowel movement. The patient has no history of GI bleed, but reports a his tory of diverticulitis in the past. On admission, vital signs were stable. The patient had white c ount of 6.8, BUN and creatinine were within normal limit. The patient had a CT of the abdomen and p evelio that showed sigmoid colon diverticulosis with trace pericolonic stranding, can be seen with mi ld sigmoid colonic diverticulitis, hepatic steatosis. The patient was kept on Levaquin and Flagyl. The patient was seen by GI consultation with Dr. Garnica. The patient is considered a high risk for proceed with colonoscopy. However, over the period of time in the hospital, patient would be advanced to full liquid diet, but would start having nausea again and abdominal pain. The patient was put back again on clear liquids. The patient was showing clinical improvement very slowly. Fin ally, the patient was added back on the Protonix. Vital signs were stable. Patient denied any abdo sarita pain, nausea, vomiting. Was started on clears, advanced to full liquids, and then tolerated s oft diet without any abdominal pain, nausea, vomiting and currently stable to be discharged home on p.o. Cipro and Flagyl. DISCHARGE DIAGNOSES: 1. Lower gastrointestinal bleed, hemorrhoids versus diverticular. H and H stayed stable to 12.3. Follow with gastroenterology as an outpatient for outpatient colonoscopy. 2. Lower abdominal pain secondary to diverticulitis. 3. Asthma. 4. Diabetes. 5. Hypertension. 6. Dyslipidemia. DISCHARGE INSTRUCTIONS: 1. The patient was instructed to follow with PCP in 1 week. 2. Patient was instructed to follow up with GI in 2 to 3 weeks for followup colonoscopy. MEDICATIONS: New prescription of: 1. Cipro 250 mg p.o. b.i.d. for 5 days. 2. Metronidazole 250 mg p.o. t.i.d. for 5 days. Continue with home medications: 1. Albuterol. 2. Aspirin 81 mg. 3. Buspirone 15 mg b.i.d. 4. Cymbalta 60 mg daily. 5. Zetia 10 mg. 6. Fenofibrate 160 mg. 7. Fluconazole. 8. Glimepiride 1 mg p.o. breakfast. 9. Hydrochlorothiazide 50 mg 10. Prilosec 40 mg. 11. Pregabalin 50 mg. 12. Trazodone 100 mg p.o. at bedtime. The patient was instructed to return to the ER if she has severe abdominal pain, nausea, vomiting, f lizzie, or chills. Dictated By: DANIEL GARDNER/REYNA Conf#: [id number] DID#: [id number]
== END 2017-03-17 15:45 | disposition still patient (30) | DRG 379 ==
LOC: E/R 13:45 → MS2 15:28
PROVIDERS: ADMIT Internal Medicine Nephrology; ATTEND Internal Medicine Nephrology
DX: K57.91 Diverticulosis of intestine, part unspecified, without perforation or abscess with bleeding (principal); K76.0 Fatty (change of) liver, not elsewhere classified; I10 Essential (primary) hypertension; E11.9 Type 2 diabetes mellitus without complications; J45.909 Unspecified asthma, uncomplicated; E78.5 Hyperlipidemia, unspecified; Z87.891 Personal history of nicotine dependence; K57.92 Diverticulitis of intestine, part unspecified, without perforation or abscess without bleeding
CPT/HCPCS: 36415; 74000; 74176; 80048; 80053; 80061; 82962; 83036; 83690; 83735; 84100; 84436; 84479; 85025; 85610; 87081; 96374; 96375; J1815; J1956; J2270; J2405; J3480; J7030

== ENCOUNTER 2017-06-15 11:53 | Day surgery (SDC) | END 2017-06-15 14:59 | disposition home or self-care (01) ==